=== PATIENT | female | born 1960 | race Two or more races ===

== ENCOUNTER → 2023-11-01 | Outpatient (CLI) | payer BC ==
[~2023-11-01] MED LIST: ALBUTEROL SULF 2.5 MG/0.5ML(0.5%) NEB SOLN ONE
== END | disposition home or self-care (01) ==
LOC: RT 08:40
PROVIDERS: ATTEND Internal Medicine Pulmonary Disease
DX: D86.9 Sarcoidosis, unspecified (principal)
CPT/HCPCS: 94060; 94727; 94729

== ENCOUNTER → 2023-11-29 | Outpatient (CLI) | payer BC | END | disposition home or self-care (01) | LOC: LAB 12:18 | PROVIDERS: ATTEND Internal Medicine Pulmonary Disease | DX: D86.9 Sarcoidosis, unspecified (principal) | CPT/HCPCS: 36415; 82565; 84520 ==

== ENCOUNTER 2024-01-11 09:34 | Inpatient (IN) | payer BC, MEDICARE ==
[~2024-01-11] VITALS: Ht 167.6 cm; Wt 79.0 kg
[2024-01-11] MEDS: HYDROcodone-ACET 5/325MG TAB PO ONE (12:00)
[2024-01-11 12:22] LABS: Basophils # (auto) 0 10 ^3/uL (0-0.2); Basophils % (auto) 0.2 % (0.0-2.0); Eosinophils # (auto) 0 10 ^3/uL (0-0.8); Hematocrit 40.3 % (36.0-46.0); Lymphocytes # (auto) 1.5 10 ^3/uL (0.4-5.4); Lymphocytes % (auto) 7.2 % (10.0-50.0); Mean Corpuscular Hemoglobin 27.1 pg (28.0-32.0); Mean Corpuscular Hgb Conc. 32.2 g/dL (32.0-36.0); Mean Corpuscular Volume 84.1 fL (80.0-100.0); Monocytes # (auto) 2.8 10 ^3/uL (0-1.3); Monocytes % (auto) 13.6 % (0.0-12.0); Neutrophils # (auto) 16.2 10 ^3/uL (1.6-8.6); Nucleated Red Blood Cells % 0.1 %; Platelet Count (auto) 158 10^3/uL (140-450); Red Blood Cells 4.79 10^6/uL (4.0-5.20); Red Cell Distribution Width 14.9 % (11.8-14.3); White Blood Cell 20.5 10^3/uL (4.4-10.8)
[2024-01-11] MEDS: cefTRIAXone 2GM/50ML D5W 50 ML IV ONE (12:22)
[2024-01-11 12:41] LABS: Alanine Aminotransferase 48 U/L (7-40); Alkaline Phosphatase 127 U/L (46-116); Anion Gap 12 (5-15); Aspartate Aminotransferase 53 U/L (13-40); BUN/Creatinine Ratio 13.6 (10.0-20.0); Blood Urea Nitrogen 18 mg/dL (9-23); Calcium 9.1 mg/dL (8.7-10.4); Carbon Dioxide 22 mmol/L (20-30); Chloride 102 mmol/L (98-107); Glucose 114 mg/dL (74-106); Potassium 3.4 mmol/L (3.5-5.1); Sodium 136 mmol/L (136-145)
[2024-01-11 12:42] LABS: Bilirubin, Total 1.4 mg/dL (0.2-1.0); Total Protein 7.2 g/dL (5.7-8.2)
[2024-01-11 12:46] LABS: INR 1.08 (0.9-1.15); Partial Thromboplastin Time 28.2 SEC (24.5-34.5); Prothrombin Time 11.4 sec (9.3-11.8)
[2024-01-11] MEDS: IOHEXOL 350 MG/ML 100ML IJ ONE (15:02)
[2024-01-11 16:15] VITALS: PULSE 79; RESP 16; O2SAT 91
[2024-01-11] MEDS ORDERED: ACETAMINOPHEN 325 MG TAB PO PRN (16:30)
[2024-01-11] MEDS ORDERED: ONDANSETRON HCL 4 MG/2 ML VIAL IV PRN (16:30)
[2024-01-11] MEDS ORDERED: DOCUSATE SOD 100 MG CAP PO PRN (16:30)
[2024-01-11 16:44] LABS: Sodium Urine < 10 mmol/L (40-220)
[2024-01-11 16:45] LABS: Urine Amorphous Crystal FEW /hpf (None Seen); Urine Bacteria FEW /hpf (None Seen); Urine Blood 1+ /uL (Negative); Urine Clarity Turbid (Clear); Urine Color Yellow (Yellow); Urine Mucus FEW (None Seen); Urine Protein, UAD 1+ (Negative); Urine Specific Gravity 1.022 (1.001-1.035); Urine Urobilinogen 6 mg/dL (Negative); Urine WBC 34 /hpf (0 - 5)
[2024-01-11 17:00] LABS: Creatinine, Urine 318.38 mg/dL (30.0-125.0)
[2024-01-11] MEDS: HEPARIN SODIUM (PORCINE) 5000 UNITS/ML 1ML VIAL IV ONE (17:11)
[2024-01-11] MEDS: HEPARIN DRIP/D5W 100UNITS/ML 250 ML IV SCH (17:20)
[2024-01-11 17:33] LABS: Basophils # (auto) 0 10 ^3/uL (0-0.2); Basophils % (auto) 0.1 % (0.0-2.0); Eosinophils # (auto) 0 10 ^3/uL (0-0.8); Hematocrit 39.1 % (36.0-46.0); Hemoglobin 12.6 g/dL (12.2-16.2); Lymphocytes # (auto) 1.6 10 ^3/uL (0.4-5.4); Lymphocytes % (auto) 8.1 % (10.0-50.0); Mean Corpuscular Hemoglobin 26.9 pg (28.0-32.0); Mean Corpuscular Hgb Conc. 32.3 g/dL (32.0-36.0); Mean Corpuscular Volume 83.2 fL (80.0-100.0); Monocytes # (auto) 2.8 10 ^3/uL (0-1.3); Monocytes % (auto) 14.2 % (0.0-12.0); Neutrophils # (auto) 15.2 10 ^3/uL (1.6-8.6); Neutrophils % (auto) 77.6 % (37.0-80.0); Platelet Count (auto) 159 10^3/uL (140-450); Red Cell Distribution Width 14.7 % (11.8-14.3); White Blood Cell 19.6 10^3/uL (4.4-10.8)
[2024-01-11] MEDS: HYDROcodone-ACET 5/325MG TAB PO PRN (17:46)
[2024-01-11] MEDS: AZITHROMYCIN 500MG/ 250ML 250 ML IV ONE (17:47)
[2024-01-11 19:30] VITALS: PULSE 83; RESP 18; O2SAT 91
[2024-01-11] MEDS: SODIUM CHLOR 0.9% PF (SALINE LOCK) 10ML VIAL/SYR IV SCH (22:09)
[2024-01-11] MEDS: HYDROmorphone HCL 2 MG/ML VL/or syr IV PRN (23:47)
[2024-01-12] VITALS (19 sets, daily range): BP systolic 98–128; BP diastolic 52–75; PULSE 65–79; RESP 16–32; TEMP 98.2–98.7; O2SAT 91–100
[2024-01-12 00:06] LABS: INR 1.07 (0.9-1.15); Prothrombin Time 11.3 sec (9.3-11.8)
[2024-01-12 00:09] LABS: Partial Thromboplastin Time 107.9 SEC (24.5-34.5)
[2024-01-12] MEDS ORDERED: LOSA-534 PO (00:51)
[2024-01-12] MEDS ORDERED: CITA20TA9 PO (00:51)
[2024-01-12] MEDS ORDERED: AML5T PO (00:52)
[2024-01-12] MEDS ORDERED: AMLO1TAB23 PO (00:53)
[2024-01-12] MEDS: HEPARIN DRIP/D5W 100UNITS/ML 250 ML IV SCH (01:15)
[2024-01-12 02:44] LABS: Rapid Strep A Screen-Throat Negative
[2024-01-12 03:09] LABS: Rapid Influenza A Negative (Negative); Rapid Influenza B Negative (Negative)
[2024-01-12 03:10] LABS: COVID19 ANTIGEN SOFIA FIA NEGATIVE (NEGATIVE)
[2024-01-12 06:37] LABS: Basophils # (auto) 0 10 ^3/uL (0-0.2); Basophils % (auto) 0.2 % (0.0-2.0); Eosinophils # (auto) 0 10 ^3/uL (0-0.8); Eosinophils % (auto) 0.1 % (0.0-7.0); Hematocrit 34.8 % (36.0-46.0); Hemoglobin 11.5 g/dL (12.2-16.2); Lymphocytes # (auto) 1.8 10 ^3/uL (0.4-5.4); Lymphocytes % (auto) 11.4 % (10.0-50.0); Mean Corpuscular Hemoglobin 27.5 pg (28.0-32.0); Mean Corpuscular Hgb Conc. 33.2 g/dL (32.0-36.0); Mean Corpuscular Volume 82.8 fL (80.0-100.0); Monocytes # (auto) 2.4 10 ^3/uL (0-1.3); Neutrophils # (auto) 11.8 10 ^3/uL (1.6-8.6); Neutrophils % (auto) 73.3 % (37.0-80.0); Platelet Count (auto) 177 10^3/uL (140-450); Red Cell Distribution Width 14.8 % (11.8-14.3)
[2024-01-12 06:40] LABS: INR 1.05 (0.9-1.15); Partial Thromboplastin Time 63.8 SEC (24.5-34.5); Prothrombin Time 11.1 sec (9.3-11.8)
[2024-01-12 06:41] LABS: Alanine Aminotransferase 42 U/L (7-40); Albumin 3.8 g/dL (3.2-4.8); Alkaline Phosphatase 124 U/L (46-116); Anion Gap 8 (5-15); Aspartate Aminotransferase 45 U/L (13-40); Blood Urea Nitrogen 22 mg/dL (9-23); Carbon Dioxide 27 mmol/L (20-30); Chloride 99 mmol/L (98-107); Glucose 102 mg/dL (74-106); Potassium 3.1 mmol/L (3.5-5.1); Sodium 134 mmol/L (136-145)
[2024-01-12 06:42] LABS: Bilirubin, Total 0.9 mg/dL (0.2-1.0)
[2024-01-12] MEDS ORDERED: POTASSIUM CHL 20 Meq TABLET PO STA (07:49)
[2024-01-12] MEDS ORDERED: SODIUM CHLORIDE 0.9% 1,000 ML IV SCH (08:00)
[2024-01-12 12:15] LABS: INR 1.03 (0.9-1.15); Partial Thromboplastin Time 59.1 SEC (24.5-34.5); Prothrombin Time 10.9 sec (9.3-11.8)
[2024-01-12] MEDS: AZITHROMYCIN 500MG/ 250ML 250 ML IV SCH (13:09)
[2024-01-12] MEDS: cefTRIAXone 1GM/50ML D5W 50 ML IV SCH (13:09)
[2024-01-12] MEDS: MORPHINE SULFATE INJ 2 MG/ml SYRG IV PRN ×2 (13:52→17:58)
[2024-01-12] MEDS: HYDROCORTISONE SOD SUCC 100 MG/2ML INJ VIAL IV ONE (15:16)
[2024-01-12] MEDS: POTASSIUM CHLORIDE 60 MEQ, LIDOCAINE 1% (LOCAL ANESTH.) 6 ML in SODIUM CHL 0.9% 500 ML IV ONE (15:16)
[2024-01-12 16:25] LABS: Base Excess 0.6 mmol/L (-2.0-2.0)
[2024-01-12] MEDS: FUROSEMIDE 40 MG/4 ML VIAL IV ONE (17:56)
[2024-01-12] MEDS: CEFEPIME 2GM/50ML NS 50 ML IV ONE (17:58)
[2024-01-12 18:45] LABS: INR 1.04 (0.9-1.15); Partial Thromboplastin Time 62.9 SEC (24.5-34.5)
[2024-01-12] MEDS: IPRATROPIUM BROM 0.5 MG/2.5ML INH SOL NEB PRN (18:55)
[2024-01-12] MEDS: ALBUTEROL SULF 2.5 MG/0.5ML(0.5%) NEB SOLN NEB PRN (18:55)
[2024-01-12] MEDS ORDERED: POTASSIUM CHLORIDE 40 MEQ, LIDOCAINE 1% (LOCAL ANESTH.) 4 ML in SODIUM CHL 0.9% 250 ML IV ONE (19:00)
[2024-01-12] MEDS: HYDROCORTISONE SOD SUCC 100 MG/2ML INJ VIAL IV SCH (21:49)
[2024-01-12] MEDS ORDERED: HYDROCORTISONE SOD SUCC 100 MG/2ML INJ VIAL IV SCH (22:00)
[2024-01-12 22:45] LABS: Alanine Aminotransferase 53 U/L (7-40); Albumin 3.8 g/dL (3.2-4.8); Alkaline Phosphatase 158 U/L (46-116); Anion Gap 11 (5-15); Aspartate Aminotransferase 61 U/L (13-40); BUN/Creatinine Ratio 11.3 (10.0-20.0); Blood Urea Nitrogen 15 mg/dL (9-23); Calcium 9.2 mg/dL (8.7-10.4); Carbon Dioxide 22 mmol/L (20-30); Chloride 102 mmol/L (98-107); Glucose 147 mg/dL (74-106); Potassium 3.4 mmol/L (3.5-5.1); Sodium 135 mmol/L (136-145)
[2024-01-13] VITALS (30 sets, daily range): BP systolic 102–139; BP diastolic 52–86; PULSE 60–77; RESP 10–28; TEMP 97.5–98.6; O2SAT 93–99
[2024-01-13 05:26] LABS: Basophils # (auto) 0 10 ^3/uL (0-0.2); Basophils % (auto) 0.1 % (0.0-2.0); Eosinophils # (auto) 0 10 ^3/uL (0-0.8); Hematocrit 35.9 % (36.0-46.0); Hemoglobin 11.8 g/dL (12.2-16.2); Lymphocytes # (auto) 0.8 10 ^3/uL (0.4-5.4); Lymphocytes % (auto) 4.9 % (10.0-50.0); Mean Corpuscular Hemoglobin 27.4 pg (28.0-32.0); Mean Corpuscular Hgb Conc. 32.9 g/dL (32.0-36.0); Mean Corpuscular Volume 83.1 fL (80.0-100.0); Monocytes % (auto) 6.4 % (0.0-12.0); Neutrophils # (auto) 13.8 10 ^3/uL (1.6-8.6); Neutrophils % (auto) 88.6 % (37.0-80.0); Platelet Count (auto) 216 10^3/uL (140-450); Red Blood Cells 4.32 10^6/uL (4.0-5.20); Red Cell Distribution Width 14.8 % (11.8-14.3); White Blood Cell 15.6 10^3/uL (4.4-10.8)
[2024-01-13 05:39] LABS: INR 1.08 (0.9-1.15); Partial Thromboplastin Time 60.1 SEC (24.5-34.5); Prothrombin Time 11.4 sec (9.3-11.8)
[2024-01-13] MEDS: CEFEPIME 2GM/50ML NS 50 ML IV SCH (05:39)
[2024-01-13 05:42] LABS: Alanine Aminotransferase 53 U/L (7-40); Albumin 3.8 g/dL (3.2-4.8); Alkaline Phosphatase 162 U/L (46-116); Anion Gap 8 (5-15); Aspartate Aminotransferase 54 U/L (13-40); BUN/Creatinine Ratio 14.8 (10.0-20.0); Blood Urea Nitrogen 17 mg/dL (9-23); Calcium 9.1 mg/dL (8.7-10.4); Carbon Dioxide 26 mmol/L (20-30); Chloride 104 mmol/L (98-107); Glucose 145 mg/dL (74-106); Magnesium 1.9 mg/dL (1.6-2.6); Potassium 3.3 mmol/L (3.5-5.1); Sodium 138 mmol/L (136-145)
[2024-01-13 05:43] LABS: Bilirubin, Total 0.8 mg/dL (0.2-1.0); Total Protein 7.2 g/dL (5.7-8.2)
[2024-01-13] MEDS: POTASSIUM CHL 20MEQ/100ML 100 ML IV SCH (06:45)
[2024-01-13] MEDS: POTASSIUM CHLORIDE 40 MEQ, LIDOCAINE 1% (LOCAL ANESTH.) 4 ML in SODIUM CHL 0.9% 250 ML IV ONE (08:07)
[2024-01-13] MEDS ORDERED: CEFEPIME 1GM/ 50ML 50 ML IV SCH (10:00)
[2024-01-13] MEDS: POTASSIUM CHLORIDE 20 MEQ, LIDOCAINE 1% (LOCAL ANESTH.) 2 ML in SODIUM CHL 0.9% 100 ML IV ONE (12:16)
[2024-01-14] VITALS (27 sets, daily range): BP systolic 120–153; BP diastolic 49–74; PULSE 51–78; RESP 16–29; TEMP 97.6–98.1; O2SAT 92–98
[2024-01-14 05:06] LABS: Basophils # (auto) 0.1 10 ^3/uL (0-0.2); Basophils % (auto) 0.3 % (0.0-2.0); Eosinophils # (auto) 0 10 ^3/uL (0-0.8); Hematocrit 34.7 % (36.0-46.0); Hemoglobin 11.5 g/dL (12.2-16.2); Lymphocytes # (auto) 0.7 10 ^3/uL (0.4-5.4); Lymphocytes % (auto) 3.7 % (10.0-50.0); Mean Corpuscular Hemoglobin 27.3 pg (28.0-32.0); Mean Corpuscular Hgb Conc. 33.1 g/dL (32.0-36.0); Mean Corpuscular Volume 82.5 fL (80.0-100.0); Monocytes # (auto) 1.1 10 ^3/uL (0-1.3); Monocytes % (auto) 6.2 % (0.0-12.0); Neutrophils # (auto) 15.9 10 ^3/uL (1.6-8.6); Neutrophils % (auto) 89.8 % (37.0-80.0); Platelet Count (auto) 261 10^3/uL (140-450); Red Blood Cells 4.21 10^6/uL (4.0-5.20); Red Cell Distribution Width 14.9 % (11.8-14.3); White Blood Cell 17.7 10^3/uL (4.4-10.8)
[2024-01-14 05:20] LABS: INR 1.08 (0.9-1.15); Partial Thromboplastin Time 69.6 SEC (24.5-34.5); Prothrombin Time 11.4 sec (9.3-11.8)
[2024-01-14 05:34] LABS: Alanine Aminotransferase 85 U/L (7-40); Albumin 3.3 g/dL (3.2-4.8); Alkaline Phosphatase 161 U/L (46-116); Anion Gap 5 (5-15); Aspartate Aminotransferase 84 U/L (13-40); BUN/Creatinine Ratio 17.7 (10.0-20.0); Blood Urea Nitrogen 14 mg/dL (9-23); Calcium 8.7 mg/dL (8.7-10.4); Carbon Dioxide 27 mmol/L (20-30); Chloride 107 mmol/L (98-107); Glucose 140 mg/dL (74-106); Magnesium 1.9 mg/dL (1.6-2.6); Potassium 4.1 mmol/L (3.5-5.1); Sodium 139 mmol/L (136-145)
[2024-01-14 05:35] LABS: Bilirubin, Total 0.6 mg/dL (0.2-1.0); Total Protein 5.8 g/dL (5.7-8.2)
[2024-01-14] MEDS: HYDROCORTISONE SOD SUCC 100 MG/2ML INJ VIAL IV SCH (09:33)
[2024-01-14] MEDS: ENOXAPARIN SOD 80 MG/0.8ML SYRINGE SC SCH (09:33)
[2024-01-14 14:26] LABS: Urine Bacteria FEW /hpf (None Seen); Urine Blood 3+ /uL (Negative); Urine Protein, UAD 1+ (Negative); Urine Specific Gravity 1.022 (1.001-1.035); Urine Urobilinogen Normal (Negative); Urine WBC 14 /hpf (0 - 5)
[2024-01-14 14:27] LABS: Urine Clarity Cloudy (Clear); Urine Color Red (Yellow)
[2024-01-14] MEDS ORDERED: hydrALAZINE HCL 20 MG/ML VL IV PRN (14:45)
[2024-01-15] VITALS (23 sets, daily range): BP systolic 104–154; BP diastolic 67–79; PULSE 51–72; RESP 16–18; TEMP 97.6–98.4; O2SAT 91–96
[2024-01-15 06:38] LABS: Basophils # (auto) 0 10 ^3/uL (0-0.2); Basophils % (auto) 0.1 % (0.0-2.0); Eosinophils # (auto) 0 10 ^3/uL (0-0.8); Eosinophils % (auto) 0.1 % (0.0-7.0); Hematocrit 35.7 % (36.0-46.0); Hemoglobin 11.8 g/dL (12.2-16.2); Lymphocytes # (auto) 1.8 10 ^3/uL (0.4-5.4); Lymphocytes % (auto) 13.2 % (10.0-50.0); Mean Corpuscular Hemoglobin 27.5 pg (28.0-32.0); Mean Corpuscular Hgb Conc. 33.1 g/dL (32.0-36.0); Mean Corpuscular Volume 82.9 fL (80.0-100.0); Monocytes # (auto) 1.8 10 ^3/uL (0-1.3); Neutrophils # (auto) 10.1 10 ^3/uL (1.6-8.6); Neutrophils % (auto) 73.6 % (37.0-80.0); Platelet Count (auto) 284 10^3/uL (140-450); Red Cell Distribution Width 14.9 % (11.8-14.3); White Blood Cell 13.8 10^3/uL (4.4-10.8)
[2024-01-15 06:43] LABS: Alanine Aminotransferase 89 U/L (7-40); Albumin 3.4 g/dL (3.2-4.8); Alkaline Phosphatase 147 U/L (46-116); Anion Gap 5 (5-15); Aspartate Aminotransferase 71 U/L (13-40); BUN/Creatinine Ratio 17.1 (10.0-20.0); Blood Urea Nitrogen 14 mg/dL (9-23); Calcium 9.6 mg/dL (8.7-10.4); Carbon Dioxide 28 mmol/L (20-30); Chloride 106 mmol/L (98-107); Glucose 90 mg/dL (74-106); Magnesium 1.9 mg/dL (1.6-2.6); Potassium 3.2 mmol/L (3.5-5.1); Sodium 139 mmol/L (136-145)
[2024-01-15 06:44] LABS: Bilirubin, Total 0.6 mg/dL (0.2-1.0); Total Protein 6.4 g/dL (5.7-8.2)
[2024-01-15] MEDS: CITALOPRAM HYDROBR 20 MG TAB PO SCH (10:02)
[2024-01-15] MEDS: POTASSIUM EFFERVESENT TAB 25 MEQ PO STA (10:02)
[2024-01-15] MEDS: amLODIPine BESYLATE 5 MG TAB PO SCH (10:03)
[2024-01-15 16:37] LABS: Chloride 104 mmol/L (98-107); Potassium 3.8 mmol/L (3.5-5.1); Sodium 137 mmol/L (136-145)
[2024-01-15 16:38] LABS: Anion Gap 6 (5-15); Calcium 9.5 mg/dL (8.7-10.4); Carbon Dioxide 27 mmol/L (20-30)
[2024-01-15 16:43] LABS: BUN/Creatinine Ratio 14.6 (10.0-20.0); Blood Urea Nitrogen 13 mg/dL (9-23); Glucose 166 mg/dL (74-106)
[2024-01-15] MEDS: LOSARTAN POTASSIUM 50 MG TAB PO STA (17:35)
[2024-01-15] MEDS: PANTOPRAZOLE 40 MG TAB PO STA (17:35)
[2024-01-16] VITALS (12 sets, daily range): BP systolic 111–152; BP diastolic 60–87; PULSE 51–74; RESP 6–20; TEMP 97.8–99.1; O2SAT 91–97
[2024-01-16] MEDS: PANTOPRAZOLE 40 MG TAB PO SCH (05:34)
[2024-01-16 07:01] LABS: Basophils # (auto) 0 10 ^3/uL (0-0.2); Basophils % (auto) 0.3 % (0.0-2.0); Eosinophils # (auto) 0 10 ^3/uL (0-0.8); Eosinophils % (auto) 0.3 % (0.0-7.0); Hemoglobin 12.3 g/dL (12.2-16.2); Lymphocytes # (auto) 2.6 10 ^3/uL (0.4-5.4); Lymphocytes % (auto) 17.5 % (10.0-50.0); Mean Corpuscular Hemoglobin 27.5 pg (28.0-32.0); Mean Corpuscular Hgb Conc. 33.3 g/dL (32.0-36.0); Mean Corpuscular Volume 82.5 fL (80.0-100.0); Monocytes # (auto) 1.8 10 ^3/uL (0-1.3); Monocytes % (auto) 11.9 % (0.0-12.0); Neutrophils # (auto) 10.3 10 ^3/uL (1.6-8.6); Nucleated Red Blood Cells % 0.1 %; Platelet Count (auto) 329 10^3/uL (140-450); Red Blood Cells 4.49 10^6/uL (4.0-5.20); White Blood Cell 14.7 10^3/uL (4.4-10.8)
[2024-01-16 07:37] LABS: Alanine Aminotransferase 95 U/L (7-40); Albumin 3.7 g/dL (3.2-4.8); Alkaline Phosphatase 144 U/L (46-116); Anion Gap 6 (5-15); Aspartate Aminotransferase 60 U/L (13-40); BUN/Creatinine Ratio 15.7 (10.0-20.0); Bilirubin, Total 0.6 mg/dL (0.2-1.0); Blood Urea Nitrogen 13 mg/dL (9-23); Calcium 9.7 mg/dL (8.7-10.4); Carbon Dioxide 30 mmol/L (20-30); Chloride 104 mmol/L (98-107); Glucose 78 mg/dL (74-106); Potassium 3.8 mmol/L (3.5-5.1); Sodium 140 mmol/L (136-145); Total Protein 6.6 g/dL (5.7-8.2)
[2024-01-16] MEDS ORDERED: FUROSEMIDE 40 MG/4 ML VIAL ONE (10:21)
[2024-01-16] MEDS: LOSARTAN POTASSIUM 50 MG TAB PO SCH (11:48)
[2024-01-16 19:41] LABS: Base Excess 4.4 mmol/L (-2.0-3.0)
[2024-01-17] VITALS (10 sets, daily range): BP systolic 98–125; BP diastolic 52–75; PULSE 62–80; RESP 17–18; TEMP 97.4–98.8; O2SAT 90–93
[2024-01-17 08:11] LABS: Hematocrit 34.8 % (36.0-46.0); Hemoglobin 11.8 g/dL (12.2-16.2); Mean Corpuscular Hemoglobin 27.7 pg (28.0-32.0); Mean Corpuscular Hgb Conc. 33.8 g/dL (32.0-36.0); Mean Corpuscular Volume 82.1 fL (80.0-100.0); Platelet Count (auto) 330 10^3/uL (140-450); Red Blood Cells 4.24 10^6/uL (4.0-5.20); Red Cell Distribution Width 14.6 % (11.8-14.3); White Blood Cell 11.8 10^3/uL (4.4-10.8)
[2024-01-17 08:36] LABS: Alanine Aminotransferase 90 U/L (7-40); Albumin 3.3 g/dL (3.2-4.8); Alkaline Phosphatase 125 U/L (46-116); Anion Gap 5 (5-15); Aspartate Aminotransferase 60 U/L (13-40); BUN/Creatinine Ratio 15.7 (10.0-20.0); Blood Urea Nitrogen 13 mg/dL (9-23); Calcium 9.6 mg/dL (8.7-10.4); Carbon Dioxide 30 mmol/L (20-30); Chloride 103 mmol/L (98-107); Glucose 94 mg/dL (74-106); Potassium 3.4 mmol/L (3.5-5.1); Sodium 138 mmol/L (136-145)
[2024-01-17 08:37] LABS: Bilirubin, Total 0.6 mg/dL (0.2-1.0); Total Protein 6.2 g/dL (5.7-8.2)
[2024-01-17 08:40] LABS: Basophils % (manual) 0 (0.0-2.0); Blast Cells 0; Myelocytes % 0; Promyelocytes % 0; Reactive Lymphocytes 0
[2024-01-17 10:47] LABS: Band Neutrophils % (manual) 7; Eosinophils % (manual) 2 (0-7); Lymphocytes % (manual) 24 (10.0-50.0); Metamyelocytes % 4; Monocytes % (manual) 12 (0-12); Platelet Estimate Adequate
[2024-01-17] MEDS: POTASSIUM CHLORIDE 40 MEQ, LIDOCAINE 1% (LOCAL ANESTH.) 4 ML in SODIUM CHL 0.9% 250 ML IV ONE (21:22)
[2024-01-18] VITALS (15 sets, daily range): BP systolic 109–134; BP diastolic 56–69; PULSE 68–86; RESP 16–24; TEMP 97.6–98.6; O2SAT 92–99
[2024-01-18 06:20] LABS: Hematocrit 33.8 % (36.0-46.0); Hemoglobin 11.4 g/dL (12.2-16.2); Mean Corpuscular Hemoglobin 27.9 pg (28.0-32.0); Mean Corpuscular Hgb Conc. 33.8 g/dL (32.0-36.0); Mean Corpuscular Volume 82.7 fL (80.0-100.0); Platelet Count (auto) 328 10^3/uL (140-450); Red Blood Cells 4.09 10^6/uL (4.0-5.20); White Blood Cell 10.5 10^3/uL (4.4-10.8)
[2024-01-18 06:24] LABS: Basophils % (manual) 0 (0.0-2.0); Blast Cells 0; Promyelocytes % 0; Reactive Lymphocytes 0
[2024-01-18 06:29] LABS: Alanine Aminotransferase 79 U/L (7-40); Albumin 3.2 g/dL (3.2-4.8); Alkaline Phosphatase 114 U/L (46-116); Anion Gap 5 (5-15); Aspartate Aminotransferase 50 U/L (13-40); BUN/Creatinine Ratio 15.1 (10.0-20.0); Bilirubin, Total 0.6 mg/dL (0.2-1.0); Blood Urea Nitrogen 11 mg/dL (9-23); Calcium 9.2 mg/dL (8.7-10.4); Carbon Dioxide 28 mmol/L (20-30); Chloride 104 mmol/L (98-107); Glucose 96 mg/dL (74-106); Magnesium 1.6 mg/dL (1.6-2.6); Potassium 4.1 mmol/L (3.5-5.1); Sodium 137 mmol/L (136-145); Total Protein 5.9 g/dL (5.7-8.2)
[2024-01-18 08:16] LABS: Band Neutrophils % (manual) 6; Eosinophils % (manual) 1 (0-7); Lymphocytes % (manual) 22 (10.0-50.0); Metamyelocytes % 1; Monocytes % (manual) 13 (0-12); Myelocytes % 1; Platelet Estimate Adequate
[2024-01-18] MEDS ORDERED: fentaNYL CITRATE 100 MCG/2 ML VL ONE (13:05)
[2024-01-18] MEDS ORDERED: MIDAZOLAM HCL 2MG/2ML 2ml VIAL (1mg/ml) ONE (13:05)
[2024-01-18] MEDS ORDERED: LIDOCAINE 2%HCL (LOCAL ANESTH.) INJ 20ML MDV ONE (13:06)
[2024-01-18] MEDS ORDERED: IODIXANOL 320MG/ML 100ML BTL IV ONE (13:06)
[2024-01-18] MEDS ORDERED: PRED1SUS4 OP (17:34)
[2024-01-19 05:10] VITALS: BP 115/65; PULSE 53; RESP 18; TEMP 97.9; O2SAT 96
[2024-01-19 08:00] VITALS: O2SAT 96
[2024-01-19 09:00] VITALS: BP 118/60; PULSE 59; RESP 16; TEMP 98.4; O2SAT 96
[2024-01-19 10:16] VITALS: O2SAT 95
[2024-01-19] MEDS ORDERED: PANT40T PO (12:51)
[2024-01-19] MEDS ORDERED: APIX5TAB PO (12:51)
[2024-01-19] MEDS ORDERED: ACET-1882 PO (12:51)
[2024-01-19 13:00] VITALS: BP 114/58; PULSE 66; RESP 16; TEMP 98.8; O2SAT 95
[2024-01-19] MEDS ORDERED: APIXABAN 5 MG TAB PO SCH (22:00)
[2024-01-26] MEDS ORDERED: APIXABAN 5 MG TAB PO SCH (22:00)
[2024-01-27] MEDS ORDERED: APIXABAN 5 MG TAB PO SCH (10:00)
== END 2024-01-19 16:30 | disposition home or self-care (01) | DRG 871 ==
LOC: ER 09:34 → TELE 16:24 → TELE-EAST 23:51 → ICU WEST 01-12 14:55 → ICU CENTRL 01-12 15:30 → DOU IN ICU 01-12 15:34 → TELE-CENTR 01-14 13:03
PROVIDERS: ADMIT Internal Medicine Pulmonary Disease; ATTEND Student in an Organized Health Care Education/Training Program
PROC: 0T903ZZ Drainage of Right Kidney, Percutaneous Approach (ICD-10-PCS; principal; 2024-01-18)
DX: A41.9 Sepsis, unspecified organism (principal); I26.99 Other pulmonary embolism without acute cor pulmonale; J96.01 Acute respiratory failure with hypoxia; J18.9 Pneumonia, unspecified organism; N17.9 Acute kidney failure, unspecified; K80.00 Calculus of gallbladder with acute cholecystitis without obstruction; N13.6 Pyonephrosis; E87.1 Hypo-osmolality and hyponatremia; I10 Essential (primary) hypertension; Z20.822 Contact with and (suspected) exposure to COVID-19; E87.6 Hypokalemia; F41.9 Anxiety disorder, unspecified; E66.9 Obesity, unspecified; D86.9 Sarcoidosis, unspecified; Z79.899 Other long term (current) drug therapy; Z68.28 Body mass index [BMI] 28.0-28.9, adult
CPT/HCPCS: 36415; 36600; 50432; 71045; 71046; 71275; 75984; 76700; 76775; 76942; 78226; 78707; 80048; 80053; 81001; 82570; 82805; 83690; 83735; 83880; 84300; 84484; 85007; 85025; 85027; 85379; 85610; 85730; 87040; 87070; 87081; 87086; 87426; 87804; 87880; 93005; 93306; 93970; 94640; 96365; 97110; 97116; 97163; 97530; 99152; G0378; J0692; J2001; J2250; Q9967

== ENCOUNTER 2024-03-07 09:10 | Emergency (ER) | payer BC, MEDICARE ==
[~2024-03-07] VITALS: Ht 165.1 cm; Wt 77.3 kg
[~2024-03-07 09:10] MED LIST changes: +ACET-1882 PO; -ALBUTEROL SULF 2.5 MG/0.5ML(0.5%) NEB SOLN ONE; +AMLO1TAB23 PO; +APIX5TAB PO; +CITA20TA9 PO; +LOSA-534 PO; +PANT40T PO
[2024-03-07 10:05] LABS: Chloride 107 mmol/L (98-107); Potassium 3.9 mmol/L (3.5-5.1); Sodium 142 mmol/L (136-145)
[2024-03-07 10:06] LABS: Anion Gap 4 (5-15); Calcium 10.2 mg/dL (8.7-10.4); Carbon Dioxide 31 mmol/L (20-31)
[2024-03-07 10:11] LABS: BUN/Creatinine Ratio 15.5 (10.0-20.0); Blood Urea Nitrogen 15 mg/dL (9-23); Glucose 94 mg/dL (74-106)
[2024-03-07 10:12] LABS: Magnesium 1.9 mg/dL (1.6-2.6)
[2024-03-07 10:13] LABS: Basophils # (auto) 0.1 10 ^3/uL (0-0.2); Eosinophils # (auto) 0.2 10 ^3/uL (0-0.8); Eosinophils % (auto) 2.8 % (0.0-7.0); Hematocrit 41.7 % (36.0-46.0); Hemoglobin 13.7 g/dL (12.2-16.2); Lymphocytes # (auto) 1.6 10 ^3/uL (0.4-5.4); Lymphocytes % (auto) 28.7 % (10.0-50.0); Mean Corpuscular Hemoglobin 27.3 pg (28.0-32.0); Mean Corpuscular Hgb Conc. 32.9 g/dL (32.0-36.0); Mean Corpuscular Volume 83.1 fL (80.0-100.0); Monocytes # (auto) 0.6 10 ^3/uL (0-1.3); Monocytes % (auto) 11.2 % (0.0-12.0); Neutrophils # (auto) 3.2 10 ^3/uL (1.6-8.6); Neutrophils % (auto) 56.3 % (37.0-80.0); Nucleated Red Blood Cells % 0.1 %; Platelet Count (auto) 217 10^3/uL (140-450); Red Blood Cells 5.01 10^6/uL (4.0-5.20); Red Cell Distribution Width 15.8 % (11.8-14.3); White Blood Cell 5.7 10^3/uL (4.4-10.8)
[2024-03-07 10:30] VITALS: PULSE 74; RESP 19; O2SAT 95
[2024-03-07 10:40] LABS: Urine Bacteria None Seen /hpf (None Seen)
[2024-03-07 11:13] VITALS: BP 135/58; PULSE 57; RESP 19; TEMP 98.2; O2SAT 97
[2024-03-07 11:19] LABS: Urine Blood TRACE /uL (Negative); Urine Clarity Clear (Clear); Urine Color Yellow (Yellow); Urine Mucus FEW (None Seen); Urine Protein, UAD 1+ (Negative); Urine Specific Gravity 1.023 (1.001-1.035); Urine Urobilinogen Normal (Negative); Urine WBC 39 /hpf (0 - 5)
[2024-03-07] MEDS ORDERED: CIPR-173 PO (11:33)
== END 2024-03-07 12:09 | disposition home or self-care (01) ==
LOC: ER 09:10
DX: T83.092A Other mechanical complication of nephrostomy catheter, initial encounter (principal); N39.0 Urinary tract infection, site not specified; I10 Essential (primary) hypertension; Z79.01 Long term (current) use of anticoagulants; Z79.899 Other long term (current) drug therapy; Z88.8 Allergy status to other drugs, medicaments and biological substances
CPT/HCPCS: 36415; 80048; 81001; 83735; 85025

== ENCOUNTER 2024-03-20 07:25 | Day surgery (SDC) | payer BC, MEDICARE ==
[~2024-03-20] VITALS: Ht 167.6 cm; Wt 76.7 kg
[2024-03-20] VITALS (7 sets, daily range): BP systolic 117–132; BP diastolic 63–71; PULSE 56–61; RESP 14–20; TEMP 97.7; O2SAT 94–97
[~2024-03-20 07:25] MED LIST changes: -ACET-1882 PO; +CHOL100079 OR; +IBUP200T76 PO
[2024-03-20] MEDS ORDERED: fentaNYL CITRATE 100 MCG/2 ML VL ONE (10:38)
[2024-03-20] MEDS ORDERED: LIDOCAINE 2%HCL (LOCAL ANESTH.) INJ 20ML MDV ONE (10:39)
[2024-03-20] MEDS ORDERED: MIDAZOLAM HCL 2MG/2ML 2ml VIAL (1mg/ml) ONE (10:39)
[2024-03-20] MEDS ORDERED: IODIXANOL 320MG/ML 100ML BTL IV ONE (10:46)
[2024-03-20] MEDS ORDERED: cefTRIAXone 1GM/50ML D5W 50 ML IV ONE (10:53)
== END 2024-03-20 13:19 | disposition home or self-care (01) ==
LOC: CATH 07:25
PROVIDERS: ATTEND Radiology Diagnostic Radiology
DX: Z46.6 Encounter for fitting and adjustment of urinary device (principal); N13.2 Hydronephrosis with renal and ureteral calculous obstruction; Z98.890 Other specified postprocedural states
CPT/HCPCS: 50435; C1729; J0696; J1644; J2250; J3010; Q9967; 74425; 99152; 99157

== ENCOUNTER → 2024-07-02 | Outpatient (CLI) | payer OTHER ==
[~2024-07-02] MED LIST changes: +CEPH500T PO; +DOCU-94 PO; +HYDR1TAB97 PO
[2024-07-02 11:23] LABS: Basophils # (auto) 0 10 ^3/uL (0-0.2); Basophils % (auto) 0.8 % (0.0-2.0); Eosinophils # (auto) 0.1 10 ^3/uL (0-0.8); Lymphocytes # (auto) 1.8 10 ^3/uL (0.4-5.4); Monocytes # (auto) 0.6 10 ^3/uL (0-1.3); Monocytes % (auto) 12.1 % (0.0-12.0); Red Blood Cells 5.14 10^6/uL (4.0-5.20)
[2024-07-02 11:25] LABS: Eosinophils % (auto) 1.9 % (0.0-7.0); Hematocrit 41.8 % (36.0-46.0); Hemoglobin 13.7 g/dL (12.2-16.2); Lymphocytes % (auto) 35.6 % (10.0-50.0); Mean Corpuscular Hemoglobin 26.7 pg (28.0-32.0); Mean Corpuscular Hgb Conc. 32.8 g/dL (32.0-36.0); Mean Corpuscular Volume 81.5 fL (80.0-100.0); Neutrophils # (auto) 2.5 10 ^3/uL (1.6-8.6); Neutrophils % (auto) 49.6 % (37.0-80.0); Platelet Count (auto) 195 10^3/uL (140-450); White Blood Cell 5.1 10^3/uL (4.4-10.8)
[2024-07-02 12:04] LABS: Albumin 4.5 g/dL (3.2-4.8); Alkaline Phosphatase 60 U/L (46-116); Anion Gap 8 (5-15); BUN/Creatinine Ratio 11.4 (10.0-20.0); Blood Urea Nitrogen 12 mg/dL (9-23); Calcium 10.1 mg/dL (8.7-10.4); Carbon Dioxide 30 mmol/L (20-31); Chloride 104 mmol/L (98-107); Glucose 91 mg/dL (74-106); HDL Cholesterol 50 mg/dL (40-59); Sodium 142 mmol/L (136-145); Triglycerides 117 mg/dL (< 150)
[2024-07-02 12:08] LABS: Alanine Aminotransferase < 9 U/L (7-40); Aspartate Aminotransferase 9 U/L (13-40); Bilirubin, Total 0.4 mg/dL (0.2-1.0); Cholesterol 283 mg/dL (< 200); LDL Cholesterol 218 mg/dL (< 100); Potassium 3.4 mmol/L (3.5-5.1); Total Protein 7.3 g/dL (5.7-8.2)
[2024-07-02 12:20] LABS: Urine Bacteria FEW /hpf (None Seen); Urine Blood Negative /uL (Negative); Urine Color Light-Yellow (Yellow); Urine Mucus FEW (None Seen); Urine Protein, UAD TRACE (Negative); Urine Specific Gravity 1.018 (1.001-1.035); Urine Squamous Epithelial Cell MOD /hpf (<5); Urine Urobilinogen Normal (Negative); Urine WBC 35 /HPF (0-5)
[2024-07-02 12:21] LABS: Urine Clarity Cloudy (Clear)
[2024-07-02 12:45] LABS: Creatinine, Urine 219.27 mg/dL (30.0-125.0)
[2024-07-02 13:00] LABS: Hepatitis B Surface Antibody Negative (Negative)
[2024-07-02 13:23] LABS: Hepatitis C Antibody Negative (Negative)
== END | disposition home or self-care (01) ==
LOC: LAB 10:04
PROVIDERS: ATTEND Physician Assistant
DX: Z11.59 Encounter for screening for other viral diseases (principal); I10 Essential (primary) hypertension; Z79.899 Other long term (current) drug therapy
CPT/HCPCS: 36415; 80053; 80061; 81001; 82043; 82306; 82570; 83036; 84443; 85025; 86706; 86803

== ENCOUNTER 2024-07-04 08:06 | Inpatient (IN) | payer MEDICARE, OTHER ==
[2024-07-02 11:31] LABS: Basophils # (auto) 0 10 ^3/uL (0-0.2); Basophils % (auto) 0.8 % (0.0-2.0); Eosinophils # (auto) 0.1 10 ^3/uL (0-0.8); Eosinophils % (auto) 1.9 % (0.0-7.0); Hematocrit 41.8 % (36.0-46.0); Hemoglobin 13.7 g/dL (12.2-16.2); Lymphocytes # (auto) 1.8 10 ^3/uL (0.4-5.4); Lymphocytes % (auto) 35.6 % (10.0-50.0); Mean Corpuscular Hemoglobin 26.7 pg (28.0-32.0); Mean Corpuscular Hgb Conc. 32.8 g/dL (32.0-36.0); Mean Corpuscular Volume 81.5 fL (80.0-100.0); Monocytes # (auto) 0.6 10 ^3/uL (0-1.3); Monocytes % (auto) 12.1 % (0.0-12.0); Neutrophils # (auto) 2.5 10 ^3/uL (1.6-8.6); Neutrophils % (auto) 49.6 % (37.0-80.0); Platelet Count (auto) 195 10^3/uL (140-450); Red Blood Cells 5.14 10^6/uL (4.0-5.20); White Blood Cell 5.1 10^3/uL (4.4-10.8)
[2024-07-02 11:37] LABS: INR 0.99 (0.9-1.15); Partial Thromboplastin Time 27.3 SEC (24.5-34.5); Prothrombin Time 10.5 sec (9.3-11.8)
[2024-07-02 12:02] LABS: Albumin 4.5 g/dL (3.2-4.8); Alkaline Phosphatase 62 U/L (46-116); Anion Gap 8 (5-15); BUN/Creatinine Ratio 14.3 (10.0-20.0); Blood Urea Nitrogen 14 mg/dL (9-23); Calcium 10.1 mg/dL (8.7-10.4); Carbon Dioxide 30 mmol/L (20-31); Chloride 104 mmol/L (98-107); Glucose 90 mg/dL (74-106); Sodium 142 mmol/L (136-145)
[2024-07-02 12:03] LABS: Bilirubin, Total 0.4 mg/dL (0.2-1.0); Total Protein 7.4 g/dL (5.7-8.2)
[2024-07-02 12:08] LABS: Alanine Aminotransferase < 9 U/L (7-40); Aspartate Aminotransferase 11 U/L (13-40); Potassium 3.3 mmol/L (3.5-5.1)
[2024-07-02 12:19] LABS: Urine Bacteria FEW /hpf (None Seen); Urine Blood Negative /uL (Negative); Urine Color Yellow (Yellow); Urine Protein, UAD TRACE (Negative); Urine Specific Gravity 1.018 (1.001-1.035); Urine Squamous Epithelial Cell MOD /hpf (<5); Urine Urobilinogen Normal (Negative); Urine WBC 34 /HPF (0-5)
[2024-07-02 12:21] LABS: Urine Clarity Cloudy (Clear)
[~2024-07-04] VITALS: Ht 165.1 cm; Wt 85.3 kg
[~2024-07-04 08:06] MED LIST changes: -APIX5TAB PO; -CEPH500T PO; -DOCU-94 PO; -HYDR1TAB97 PO; -IBUP200T76 PO
[2024-07-04] MEDS ORDERED: KETOROLAC TROMETH 30 MG/ML 1ML VIAL IV ONE (09:00)
[2024-07-04] MEDS ORDERED: METOCLOPRAMIDE HCL 5MG/ml INJ 2ml VIAL IV ONE (09:00)
[2024-07-04] MEDS ORDERED: MORPHINE SULFATE 4 MG/ML SYR/VIAL IV PRN (09:00)
[2024-07-04] MEDS ORDERED: MORPHINE SULFATE INJ 2 MG/ml SYRG IV PRN ×2 (09:00→14:15)
[2024-07-04] MEDS ORDERED: HYDROmorphone HCL 2 MG/ML VL/or syr IV PRN ×2 (09:00)
[2024-07-04] MEDS ORDERED: KETAMINE 50mg/ML 1ml syringe ONE (09:01)
[2024-07-04] MEDS ORDERED: MEPERIDINE HCL (25 MG/ML) 1ML VIAL ONE (09:01)
[2024-07-04] MEDS ORDERED: fentaNYL CITRATE 100 MCG/2 ML VL ONE (09:02)
[2024-07-04] MEDS ORDERED: MIDAZOLAM HCL 2MG/2ML 2ml VIAL (1mg/ml) ONE (09:02)
[2024-07-04] MEDS ORDERED: SODIUM CHLORIDE LOCK 10 ML ONE (09:02)
[2024-07-04] MEDS ORDERED: LIDOCAINE 1% INJ PF 5ML AMP ONE (09:02)
[2024-07-04] MEDS ORDERED: NEOSTIGMINE 1 MG/ML INJ (10mg/10ML VIAL) ONE (09:02)
[2024-07-04] MEDS ORDERED: ONDANSETRON HCL 4 MG/2 ML VIAL ONE (09:02)
[2024-07-04] MEDS ORDERED: GLYCOPYRROLATE 0.2 MG/ML 1ML VIAL ONE (09:02)
[2024-07-04] MEDS ORDERED: ROCURONIUM 10MG/ML 10ML VIAL IV ONE (09:02)
[2024-07-04] MEDS ORDERED: PROPOFOL 10 MG/ML 20 ML IV ONE (09:02)
[2024-07-04] MEDS ORDERED: LIDOCAINE HCL 2% TOP JELLY 5ML TOP ONE (09:02)
[2024-07-04] MEDS: BUPIVACAINE 0.5% P/F INJ 10 ML VIAL ONE (09:35)
[2024-07-04] MEDS: LIDOCAINE W/ EPINEPHRINE 1% 20ML VIAL ONE (09:35)
[2024-07-04 10:17] VITALS: O2SAT 99
[2024-07-04] MEDS ORDERED: SUCCINYLCHOLINE CHLORIDE 20 MG/ML 10ML VIAL IV ONE (11:13)
--- NOTE | 2024-07-04 11:57 | DVHOP ---
DATE OF SURGERY: 07/04/2024 PREOPERATIVE DIAGNOSES: Cholelithiasis, cholecystitis. POSTOPERATIVE DIAGNOSES: Chronic and acute cholecystitis, cholelithiasis. SURGEON: Terrance Herrera MD CRATE BUILDER: Nitin Navas. ANESTHESIA: General endotracheal. ANESTHESIOLOGIST: Dr. Flores. PROCEDURE: Laparoscopy, laparoscopic cholecystectomy. DESCRIPTION OF PROCEDURE: Under general endotracheal anesthesia, with the patient's skin prepped and draped, a supraumbilical incision was made and Veress needle inserted by the hanging drop technique to establish pneumoperitoneum to 15 mmHg pressure by insufflation with carbon dioxide. With the abdomen fully distended, the needle was removed and replaced with a 5 mm trocar port through which a 0-degree viewing laparoscope was inserted and under direct vision, 5 and 10 mm ports were inserted through the anterior axillary line on the right flank and subxiphoid skin respectively. The laparoscopic examination was performed. It revealed a densely scarred gallbladder, which was contracted and full of stones, which was attached to the omentum and the transverse colon. Lysis of adhesions was accomplished bluntly. The gallbladder was placed on tension. The cystic duct and cystic artery were meticulously dissected circumferentially and skeletonized of much scar tissue. The structures were traced into the hepatocystic triangle so as to minimize the potential for inadvertent injury to the common bile duct. At this point, the cystic artery and cystic duct were divided between metallic clips and the gallbladder resected from its liver bed by electrocautery and traction. The fully mobilized gallbladder was removed from the peritoneal cavity by placement in a specimen extraction bag and this was retrieved through the subxiphoid 10 mm port site. The right upper quadrant was then irrigated, irrigant was aspirated. Hemostasis was meticulously accomplished, found to be complete. At the time of the termination of procedure, there was no evidence of bleeding from either the port sites or from the cholecystectomy site. A 10 mm Macho-Faith drain was placed underneath the right lobe of the liver due to the chronicity of the inflammation, exteriorized through the right flank 5 mm trocar port site and secured with a 2-0 nylon suture. Following further assertion of complete hemostasis and following irrigation of the right upper quadrant, instrumentation was withdrawn. The fascial defect was closed after evacuation of the pneumoperitoneum. Skin approximated using Monocryl sutures, Dermabond glue and Steri-Strips. The patient remained stable throughout the procedure, left the operating room following an accurate needle and sponge count. MD ROBERT Patel/MYNOR TID: [id number] RECEIPT: [id number]
[2024-07-04] MEDS ORDERED: NITROGLYCERIN 0.4 MG SL TAB SL PRN (14:15)
--- NOTE | 2024-07-04 14:41 | DVHHP2 ---
Review of Systems Allergies: Coded Allergies: Benzalkonium Chloride (Verified Allergy, Unknown, 03/16/24) Benzonatate (Verified Allergy, Unknown, 03/16/24) Cetirizine (Verified Allergy, Unknown, 03/16/24) Edetic Acid (Verified Allergy, Unknown, 03/16/24) Tiotropium (Verified Allergy, Unknown, 03/16/24) Medications Current Medications Medications Dose Ordered Sig/Sandra Route Start Time Stop Time Status Last Admin Dose Admin Hydromorphone HCl 0.5 mg Q10M PRN IV 07/04/24 09:00 07/04/24 15:00 Hydromorphone HCl 0.25 mg Q10M PRN IV 07/04/24 09:00 07/04/24 15:00 Nitroglycerin 0.4 mg Q5MINP PRN SL 07/04/24 14:15 UNV Morphine Sulfate 2 mg Q30M PRN IV 07/04/24 14:15 UNV Exam Vital Signs Vital Signs Date Time Temp Pulse Resp B/P (MAP) Pulse Ox O2 Delivery O2 Flow Rate FiO2 07/04/24 10:17 Nasal Cannula 4.0 99 07/04/24 10:17 99 07/04/24 08:35 97.5 57 20 138/71 (93) 97.5 Labs/Xrays Labs Test 07/02/24 10:19 Range/Units White Blood Count 5.1 4.4-10.8 10^3/uL Red Blood Count 5.14 4.0-5.20 10^6/uL Hemoglobin 13.7 12.2-16.2 g/dL Hematocrit 41.8 36.0-46.0 % Mean Corpuscular Volume 81.5 80.0-100.0 fL Mean Corpuscular Hemoglobin 26.7 L 28.0-32.0 pg Mean Corpuscular Hemoglobin Concent 32.8 32.0-36.0 g/dL Red Cell Distribution Width 15.0 H 11.8-14.3 % Platelet Count 195 140-450 10^3/uL Mean Platelet Volume 10.3 6.9-10.8 fL Neutrophils (%) (Auto) 49.6 37.0-80.0 % Lymphocytes (%) (Auto) 35.6 10.0-50.0 % Monocytes (%) (Auto) 12.1 H 0.0-12.0 % Eosinophils (%) (Auto) 1.9 0.0-7.0 % Basophils (%) (Auto) 0.8 0.0-2.0 % Neutrophils # (Auto) 2.5 1.6-8.6 10 ^3/uL Lymphocytes # (Auto) 1.8 0.4-5.4 10 ^3/uL Monocytes # (Auto) 0.6 0-1.3 10 ^3/uL Eosinophils # (Auto) 0.1 0-0.8 10 ^3/uL Basophils # (Auto) 0 0-0.2 10 ^3/uL Nucleated Red Blood Cells 0.0 % Prothrombin Time 10.5 9.3-11.8 sec Prothrombin Time INR 0.99 0.9-1.15 Activated Partial Thromboplast Time 27.3 24.5-34.5 SEC Urine Color Yellow Yellow Urine Clarity Cloudy H Clear Urine pH 6.0 5.0-9.0 Urine Specific [place] 1.018 1.001-1.035 Urine Protein Trace H Negative Urine Ketones Negative Negative Urine Blood Negative Negative /uL Urine Nitrite Negative Negative Urine Bilirubin Negative Negative Urine Urobilinogen Normal Negative mg/dL Urine Leukocyte Esterase 3+ Negative /uL Urine RBC 2 0 - 4 /hpf Urine Microscopic WBC 34 H 0-5 /HPF Urine Squamous Epithelial Cells Mod <5 /hpf Urine Bacteria Few H None Seen /hpf Urine Glucose Normal Normal mg/dL Sodium Level 142 136-145 mmol/L Potassium Level 3.3 L 3.5-5.1 mmol/L Chloride Level 104 98-107 mmol/L Carbon Dioxide Level 30 20-31 mmol/L Anion Gap 8 5-15 Blood Urea Nitrogen 14 9-23 mg/dL Creatinine 0.98 0.550-1.02 mg/dL Glomerular Filtration Rate Calc 64 >90 mL/min BUN/Creatinine Ratio 14.3 10.0-20.0 Serum Glucose 90 74-106 mg/dL Calcium Level 10.1 8.7-10.4 mg/dL Total Bilirubin 0.4 0.2-1.0 mg/dL Aspartate Amino Transferase (AST) 11 L 13-40 U/L Alanine Aminotransferase (ALT) < 9 7-40 U/L Alkaline Phosphatase 62 46-116 U/L Total Protein 7.4 5.7-8.2 g/dL Albumin 4.5 3.2-4.8 g/dL Assessment/Plan Assessment/Plan see dictated note Plan discussed with: Patient My Orders Orders - WYATT CABRERA MD Procedure Category Date Status Time Admit ADMIT 07/04/24 Transmitted 14:08 Oxygen By Nasal RT 07/04/24 Transmitted Cannula 14:08 Nitroglycerin PHA 07/04/24 Logged Sublingual (Ntrostat 14:15 Morphine Sulfate PHA 07/04/24 Logged Injection 14:15 Notify Md Of Changes NO 07/04/24 In Process From Base 14:08 Emergency Dysrhythmia NO 07/04/24 In Process Protocol 14:08 Rhythm Strips Once NO 07/04/24 In Process Every Shift 14:08 Stat Ekg For Chest [facility] 07/04/24 In Process Pain 14:08 Date of Service: Jul 04, 2024 Billing Provider: WYATT CABRERA MD Common Visit Codes: [id number] INP/OBS CARE (HIGH) WYATT CABRERA MD Jul 04, 2024 14:41
[2024-07-04 14:45] VITALS: BP 120/64; PULSE 73; RESP 16; TEMP 97.5; O2SAT 92
[2024-07-04] MEDS ORDERED: hydrALAZINE HCL 20 MG/ML VL IV PRN (14:45)
[2024-07-04] MEDS ORDERED: ONDANSETRON HCL 4 MG/2 ML VIAL IV PRN (14:45)
[2024-07-04] MEDS ORDERED: ACETAMINOPHEN 325 MG TAB PO PRN (14:45)
--- NOTE | 2024-07-04 14:55 | DVHHP ---
ADMIT DATE: 07/04/2024 HISTORY OF PRESENT ILLNESS: The patient is a 63-year-old lady who was admitted after she underwent laparoscopic cholecystectomy for cholelithiasis and chronic cholecystitis. The patient at this time denies any significant pain. No chest pain or shortness of breath. No nausea or vomiting. REVIEW OF SYSTEMS: Review of rest of systems otherwise currently negative. PAST MEDICAL HISTORY: Significant for hypertension, anxiety, sarcoidosis, previous history of hydronephrosis as well as previous history of PE. MEDICATIONS: Include amlodipine, losartan, Celexa, Protonix. ALLERGIES: Several and listed in the records. SOCIAL HISTORY: No history of smoking or alcohol. FAMILY HISTORY: Negative. PHYSICAL EXAMINATION: GENERAL: The patient is awake, alert. VITAL SIGNS: Temperature 97.5, pulse 57 per minute, blood pressure 130/51. SHEENT: Unremarkable. NECK: There is no JVD, no pedal edema. LUNGS: Equal bilaterally. No added sounds. CARDIOVASCULAR SYSTEM: S1, S2 is regular. No murmurs. ABDOMEN: Soft. Bowel sounds are hypoactive. NEUROLOGIC: Nonfocal. MUSCULOSKELETAL: Normal. ASSESSMENT AND PLAN: * Hypertension, for which the patient's blood pressure will be monitored. * Urinary tract infection for which urine culture will be obtained and she will be placed on IV Rocephin. * History of sarcoidosis. * History of pulmonary embolism. * History of kidney stones. * History of hydronephrosis. * Obesity. * Status post laparoscopic cholecystectomy for cholelithiasis and chronic cholecystitis. The patient was placed on pain medications as well as IV antibiotics. MD ANKUR Valentin/DERREK TID: [id number] RECEIPT: [id number]
[2024-07-04 15:31] VITALS: BP 120/64; PULSE 73; RESP 16; TEMP 97.5; O2SAT 92
[2024-07-04] MEDS: D5W/SOD CHL 0.45%/KCL 20MEQ 1,000 ML IV SCH (15:58)
[2024-07-04] MEDS: cefTRIAXone 1GM/50ML D5W 50 ML IV ONE (15:59)
[2024-07-04] MEDS: MORPHINE SULFATE INJ 2 MG/ml SYRG IV PRN (16:02)
[2024-07-04 17:00] VITALS: BP 125/67; PULSE 71; RESP 17; TEMP 99.1; O2SAT 92
[2024-07-04 20:00] VITALS: PULSE 72; RESP 17; O2SAT 92
[2024-07-04] MEDS: HYDROcodone-ACET 5/325MG TAB PO PRN (23:12)
[2024-07-05 01:00] VITALS: BP 126/65; PULSE 62; RESP 17; TEMP 98.2; O2SAT 92
[2024-07-05 05:00] VITALS: BP 133/67; PULSE 60; RESP 17; TEMP 97.9; O2SAT 95
[2024-07-05 07:20] LABS: Basophils # (auto) 0.1 10 ^3/uL (0-0.2); Basophils % (auto) 0.5 % (0.0-2.0); Eosinophils # (auto) 0 10 ^3/uL (0-0.8); Eosinophils % (auto) 0.2 % (0.0-7.0); Hematocrit 37.6 % (36.0-46.0); Hemoglobin 12.6 g/dL (12.2-16.2); Lymphocytes # (auto) 1.2 10 ^3/uL (0.4-5.4); Lymphocytes % (auto) 9.8 % (10.0-50.0); Mean Corpuscular Hgb Conc. 33.5 g/dL (32.0-36.0); Mean Corpuscular Volume 80.5 fL (80.0-100.0); Monocytes # (auto) 0.9 10 ^3/uL (0-1.3); Monocytes % (auto) 7.8 % (0.0-12.0); Neutrophils # (auto) 9.8 10 ^3/uL (1.6-8.6); Neutrophils % (auto) 81.7 % (37.0-80.0); Nucleated Red Blood Cells % 0.1 %; Platelet Count (auto) 170 10^3/uL (140-450); Red Blood Cells 4.67 10^6/uL (4.0-5.20); Red Cell Distribution Width 15.1 % (11.8-14.3); White Blood Cell 11.9 10^3/uL (4.4-10.8)
[2024-07-05 07:44] LABS: Alanine Aminotransferase 20 U/L (7-40); Albumin 4.2 g/dL (3.2-4.8); Alkaline Phosphatase 56 U/L (46-116); Anion Gap 8 (5-15); Aspartate Aminotransferase 26 U/L (13-40); BUN/Creatinine Ratio 11.9 (10.0-20.0); Blood Urea Nitrogen 10 mg/dL (9-23); Calcium 9.5 mg/dL (8.7-10.4); Carbon Dioxide 27 mmol/L (20-31); Chloride 104 mmol/L (98-107); Glucose 120 mg/dL (74-106); Potassium 3.8 mmol/L (3.5-5.1); Sodium 139 mmol/L (136-145)
[2024-07-05 07:45] LABS: Bilirubin, Total 0.4 mg/dL (0.2-1.0); Total Protein 6.7 g/dL (5.7-8.2)
[2024-07-05 08:10] VITALS: PULSE 59; RESP 16; O2SAT 97
[2024-07-05] MEDS: cefTRIAXone 1GM/50ML D5W 50 ML IV SCH (08:53)
[2024-07-05] MEDS: ENOXAPARIN SOD 40 MG/0.4 ML SYRINGE SC SCH (08:53)
[2024-07-05 09:00] VITALS: BP 135/70; PULSE 59; RESP 16; TEMP 97.9; O2SAT 97
[2024-07-05 12:54] LABS: Urine Bacteria None Seen /hpf (None Seen)
[2024-07-05 13:00] VITALS: BP 146/57; PULSE 65; RESP 20; TEMP 98.7; O2SAT 93
[2024-07-05 13:05] LABS: Urine Blood Negative /uL (Negative); Urine Clarity Clear (Clear); Urine Color Colorless (Yellow); Urine Protein, UAD Negative (Negative); Urine Squamous Epithelial Cell FEW /hpf (<5); Urine Urobilinogen Normal (Negative); Urine WBC 3 /HPF (0-5); Urine pH 6.5 (5.0-9.0)
--- NOTE | 2024-07-05 14:11 | DVHPN2 ---
Progress Note Date Seen: Jul 05, 2024 Has the PT tested + for MRSA If YES, has PT been informed?: No Medical Necessity Reason Pt with a Central, PICC or Fol: No Subjective Patient reports: No new complaints, Feels better Review of Systems: HEENT:Normal, CVS:Normal, RESPIRATORY:Normal, GI:Normal, :Normal, MSK:Normal, NEURO:Normal Objective vital signs Vital Sign Date Time Temp Pulse Resp B/P (MAP) Pulse Ox O2 Delivery O2 Flow Rate FiO2 07/05/24 13:00 98.7 65 20 146/57 (86) 93 98.7 07/05/24 08:10 Nasal Cannula* 2 28 Total Intake and Output 07/04/24 07/04/24 07/05/24 15:00 23:00 07:00 Intake Total 100 ml 168 ml 900 ml Output Total 29 ml Balance 100 ml 139 ml 900 ml medications Current Medications Medications Dose Ordered Sig/Sandra Route Start Time Stop Time Status Last Admin Dose Admin Nitroglycerin 0.4 mg Q5MINP PRN SL 07/04/24 14:15 Morphine Sulfate 2 mg Q30M PRN IV 07/04/24 14:15 Potassium Chloride/Dextrose/ Sod Cl 1,000 ml @ 75 mls/hr [id number] IV 07/04/24 14:45 07/05/24 06:39 75 MLS/HR Morphine Sulfate 2 mg Q4HPRN PRN IV 07/04/24 14:45 07/04/24 16:02 2 MG Acetaminophen/ Hydrocodone Bitart 1 tab Q6HPRN PRN PO 07/04/24 14:45 07/05/24 12:25 1 TAB Acetaminophen 650 mg Q6HP PRN PO 07/04/24 14:45 Ondansetron HCl 4 mg Q6HPRN PRN IV 07/04/24 14:45 Hydralazine HCl 10 mg Q6HP PRN IV 07/04/24 14:45 Ceftriaxone Sodium 50 ml @ 100 mls/hr DAILY@09 IV 07/05/24 09:00 07/05/24 08:53 100 MLS/HR Enoxaparin Sodium 40 mg DAILY SC 07/05/24 10:00 07/05/24 08:53 40 MG Examination: GENERAL:Normal, HEENT:Normal, NECK:Normal, LUNGS:Normal, CVS:Normal, ABDOMEN:Abnormal (DAVE drain), MSK:Normal, SKIN:Normal laboratory and microbiology Laboratory Tests 07/05/24 07:04 Test 07/05/24 07:04 Range/Units Serum Glucose 120 H 74-106 mg/dL Problem List/Assessment/Plan Problem List/Assessment/Plan 07/05/24 patient doing well no new complaints, abdomen soft non distended, appropriately tender, DAVE drain serous fluid, tolerating diet, denies nausea or vomiting, labs and notes reviewed patient ok to discharge per surgery point of view, patient to follow up in clinic on Tuesday, september shower in 72 hours Plan discussed with: Patient, Other (Dr. Herrera ) FERNANDO DUNHAM MODEL MAKER APPRENTICE Jul 05, 2024 14:11
[2024-07-05] MEDS ORDERED: CEPH500T PO (14:54)
[2024-07-05] MEDS ORDERED: DOCU-94 PO (14:54)
[2024-07-05] MEDS ORDERED: HYDR1TAB97 PO (14:54)
--- NOTE | 2024-07-05 16:40 | DVHDS ---
DATE OF DISCHARGE: 07/05/2024 HISTORY OF PRESENT ILLNESS: The patient is a 63-year-old lady who was admitted after she underwent laparoscopic cholecystectomy for cholelithiasis and chronic cholecystitis. The patient has a previous history of hypertension, sarcoidosis, pulmonary embolism. HOSPITAL COURSE: The patient did well postoperatively. The patient has tolerated oral diet. She has now been cleared for discharge by Surgery. She will be discharged home, to be placed on Bradshaw p.r.n. for pain, cephalexin 500 mg t.i.d. for 7 days and Colace p.r.n. for constipation. She will follow up with Dr. Herrera in 1 week. FINAL DIAGNOSES: Therefore, * Hypertension. * History of sarcoidosis. * History of pulmonary embolism. * Obesity. * Status post laparoscopic cholecystectomy for cholelithiasis and chronic cholecystitis. Time spent in discharge planning and review of plan with the patient and nursing was 38 minutes. MD ANKUR Valentin/CRYSTAL TID: [id number] RECEIPT: [id number]
[2024-07-05 17:19] VITALS: BP 136/64; PULSE 60; RESP 18; TEMP 98; O2SAT 96
== END 2024-07-05 17:25 | disposition home or self-care (01) | DRG 419 ==
LOC: SUR 08:06 → OVERFLOW 14:08 → WEST WING 14:57
PROVIDERS: ADMIT Internal Medicine; ATTEND Internal Medicine
PROC: 0FT44ZZ Resection of Gallbladder, Percutaneous Endoscopic Approach (ICD-10-PCS; principal; 2024-07-04 09:14)
DX: K80.12 Calculus of gallbladder with acute and chronic cholecystitis without obstruction (principal); I10 Essential (primary) hypertension; F41.9 Anxiety disorder, unspecified; E66.9 Obesity, unspecified; K59.00 Constipation, unspecified; Z86.711 Personal history of pulmonary embolism; Z87.442 Personal history of urinary calculi; Z68.31 Body mass index [BMI] 31.0-31.9, adult; Z79.899 Other long term (current) drug therapy
CPT/HCPCS: 36415; 80053; 81001; 85025; 85610; 85730; 86850; 86900; 86901; 87070; 87075; 87086; 87205; G0378; J0330; J2250; J2405; J2704; J3490

== ENCOUNTER 2025-01-10 08:09 | Inpatient (IN) | payer MEDICARE, OTHER ==
[~2025-01-10] VITALS: Ht 165.1 cm; Wt 85.2 kg
[~2025-01-10 08:09] MED LIST changes: +CEPH500T PO; +DOCU-94 PO; +HYDR1TAB97 PO
--- NOTE | 2025-01-10 08:38 | ED.PDOC ---
History of Present Illness HPI Comments 64-year-old female presents to the ER with hypertension, kidney stones, DVT, nephrostomy tube: Recent Surgical history of left knee on December 07 chief complaint of chest pain. Patient reports on having right-sided chest pain for three days with shortness a breath. Patient notes on taking inhaler prior to arrival to the ED as well as taking blood thinners. patient states "burping and hiccuping more". Denies chills, fever, N/V/D. No other associated symptoms, modifiers, recent injuries or sick contacts present at this time. Chief Complaint: Chest Pain Time Seen by MD: 08:35 Primary Care Provider: SANDY BANDA Reviewed Notes: Nurses Notes, Medications, Allergies Allergies: Coded Allergies: Benzalkonium Chloride (Verified Allergy, Unknown, 03/16/24) Benzonatate (Verified Allergy, Unknown, 03/16/24) Cetirizine (Verified Allergy, Unknown, 03/16/24) Edetic Acid (Verified Allergy, Unknown, 03/16/24) Tiotropium (Verified Allergy, Unknown, 03/16/24) Home Meds Active Scripts Docusate Sodium (Colace) 100 Mg Cap, 100 MG PO BIDP PRN for 15 Days, #40 CAP Prov:WYATT CABRERA MD 07/05/24 Cephalexin Monohydrate (Cephalexin) 500 Mg Tab, 1 TAB PO TID for 7 Days, #21 TAB Prov:WYATT CABRERA MD 07/05/24 Hydrocodone-Acetaminophen (Hydrocodone/Acetaminophen 5-325 mg) 1 Tab Tab, 1 TAB PO TIDP PRN for 6 Days, #18 TAB Prov:WYATT CABRERA MD 07/05/24 Pantoprazole Sodium Sesquihydr (Pantoprazole Sodium) 40 Mg Tab, 40 MG PO DAILY@0600 for 30 Days, #30 TAB Prov:NOHEMY ROLDAN RESIDENT 01/19/24 Reported Medications Cholecalciferol (VITAMIN D3) 1,000 Unit Chw, 1000 UNIT OR DAILY, TAB.CHEW 03/16/24 Amlodipine Besylate (Amlodipine Besylate) 10 Mg Tab, 1 TAB PO DAILY for HTN, #30 TAB 5 Refills 01/12/24 Losartan Potassium (Losartan Potassium) 50 Mg Tab, 1 TAB PO DAILY for HTN, #30 TAB 5 Refills 01/12/24 Citalopram Hydrobromide (Celexa) 20 Mg Tab, 20 MG PO DAILY for anxiety, TAB 01/12/24 Information Source: Patient Mode of Arrival: Ambulatory Severity: Moderate Timing: Days Duration: Since onset, Days Prehospital treatment: None Past Medical History PAST MEDICAL HISTORY: HTN, Kidney Stones Past Medical History (Other): DVT, nephrostomy to Surgical History (Other): Recent left knee surgery on December 07 WEBBING TACKER History: No Pertinent WEBBING TACKER History Family History Family History: Reviewed,noncontributory to illness, Unknown Social History Smoker: Non-Smoker Alcohol: Denies ETOH Use Drugs: Denies Drug Use Lives In: Home Constitutional: denies: chills, diaphoresis, fatigue, fever, malaise, sweats, weakness, others EENTM: denies: blurred vision, double vision, ear bleeding, ear discharge, ear drainage, ear pain, ear ringing, eye pain, eye redness, hearing loss, mouth pain, mouth swelling, nasal discharge, nose bleeding, nose congestion, nose pain, photophobia, tearing, throat pain, throat swelling, voice changes, others Respiratory: reports: shortness of breath; denies: cough, hemoptysis, orthopnea, SOB at rest, SOB with excertion, stridor, wheezing, others Cardiovascular: reports: chest pain; denies: dizzy spells, diaphoresis, Dyspnea on exertion, edema, irregular heart beat, left arm pain, lightheadedness, palpitations, PND, syncope, others Gastrointestinal: denies: abdomen distended, abdominal pain, blood streaked bowels, constipated, diarrhea, dysphagia, difficulty swallowing, hematemesis, melena, nausea, poor appetite, poor fluid intake, rectal bleeding, rectal pain, vomiting, others Genitourinary: denies: abnormal vagina bleeding, burning, dyspareunia, dysuria, flank pain, frequency, hematuria, incontinence, pain, , vagina discharge, urgency, others Neurological: denies: dizziness, fainting, headache, left sided numbness, left sided weakness, numbness, paresthesia, pre-existing deficit, right sided numbness, right sided weakness, seizure, speech problems, tingling, tremors, weakness, others Musculoskeletal: denies: back pain, gout, joint pain, joint swelling, muscle pain, muscle stiffness, neck pain, others Integumetry: denies: bruises, change in color, change in hair/nails, dryness, laceration, lesions, lumps, rash, wounds, others Allergic/Immunocompromised: denies: Difficulty Healing, Frequent Infections, Hives, Itching, others Hematologic/Lymphatic: denies: anemia, blood clots, easy bleeding, easy bruising, swollen glands, others Endocrine: denies: excessive hunger, excessive sweating, excessive thirst, excessive urination, flushing, intolerance to cold, intolerance to heat, unexplained weight gain, unexplained weight loss, others Psychiatric: denies: anxiety, bipolar disorder, depression, hopeless, panic disorder, schizophrenia, sleepless, suicidal, others All Other Systems: Reviewed and Negative Physical Exam General Appearance: Moderate Distress, Normal HEENT: Normal ENT Inspection, Pharynx Normal, TMs Normal Neck: Full Range of Motion, Non-Tender, Normal, Normal Inspection Respiratory: Chest Non-Tender, Lungs Clear, No Accessory Muscle Use, No Respir atory Distress, Normal Breath Sounds Cardiovascular: No Edema, No JVD, No Murmur, No Gallop, Normal Peripheral Pulses, Regular Rate/Rhythm Breast Exam: Deferred Gastrointestinal: No Organomegaly, Non Tender, No Pulsatile Mass, Normal Bowel Sounds, Soft Genitalia: Deferred Pelvic: Deferred Rectal: Deferred Extremities: No calf tenderness, Normal capillary refill, Normal inspection, Normal range of motion, Non-tender, No pedal edema Musculoskeletal : Apperance: Normal Neurologic: Alert, field education director II-XII nml as Tested, No Motor Deficits, Normal Affect, Normal Mood, No Sensory Deficits Cerebellar Function: NOT DONE Reflexes: NOT DONE Skin: Dry, Normal Color, Warm Peripheral Pulses: 3+ Radial (R), 3+ Radial (L) Lymphatic: No Adenopathy Was a procedure done? Was a procedure done?: No Differential Dx Considerations may include: Anemia Electrolyte imbalance X-Ray, Labs, Meds, VS Vital Signs Date Time Temp Pulse Resp B/P (MAP) Pulse Ox O2 Delivery O2 Flow Rate FiO2 01/10/25 09:12 98.5 68 19 112/61 (78) 98 98.5 01/10/25 09:12 68 19 98 Room Air* 0 21 01/10/25 09:00 75 01/10/25 08:17 79 01/10/25 08:12 98.5 76 18 129/71 97 98.5 Lab Test 01/10/25 09:36 01/10/25 09:23 01/10/25 08:35 Range/Units Troponin I High Sensitivity 3 L 3 L </=34 ng/L Urine Color Light-yellow Yellow Urine Clarity Cloudy H Clear Urine pH 7.0 5.0-9.0 Urine Specific [place] 1.019 1.001-1.035 Urine Protein 1+ H Negative Urine Ketones 1+ H Negative Urine Blood 2+ H Negative /uL Urine Nitrite Negative Negative Urine Bilirubin Negative Negative Urine Urobilinogen 3 H Negative mg/dL Urine Leukocyte Esterase 2+ Negative /uL Urine RBC 276 0 - 4 /hpf Urine Microscopic WBC 24 H 0-5 /HPF Urine Squamous Epithelial Cells Many <5 /hpf Urine Bacteria Mod H None Seen /hpf Urine Glucose Normal Normal mg/dL White Blood Count 9.6 4.4-10.8 10^3/uL Red Blood Count 4.92 4.0-5.20 10^6/uL Hemoglobin 13.4 12.2-16.2 g/dL Hematocrit 41.4 36.0-46.0 % Mean Corpuscular Volume 84.2 80.0-100.0 fL Mean Corpuscular Hemoglobin 27.3 L 28.0-32.0 pg Mean Corpuscular Hemoglobin Concent 32.4 32.0-36.0 g/dL Red Cell Distribution Width 15.8 H 11.8-14.3 % Platelet Count 193 140-450 10^3/uL Mean Platelet Volume 10.6 6.9-10.8 fL Neutrophils (%) (Auto) 66.6 37.0-80.0 % Lymphocytes (%) (Auto) 20.3 10.0-50.0 % Monocytes (%) (Auto) 12.0 0.0-12.0 % Eosinophils (%) (Auto) 0.6 0.0-7.0 % Basophils (%) (Auto) 0.5 0.0-2.0 % Neutrophils # (Auto) 6.4 1.6-8.6 10 ^3/uL Lymphocytes # (Auto) 1.9 0.4-5.4 10 ^3/uL Monocytes # (Auto) 1.1 0-1.3 10 ^3/uL Eosinophils # (Auto) 0.1 0-0.8 10 ^3/uL Basophils # (Auto) 0 0-0.2 10 ^3/uL Nucleated Red Blood Cells 0.0 % D-Dimer, Quantitative 1.99 H 0.0-0.49 mg/L FEU Sodium Level 141 136-145 mmol/L Potassium Level 3.4 L 3.5-5.1 mmol/L Chloride Level 106 98-107 mmol/L Carbon Dioxide Level 23 20-31 mmol/L Anion Gap 12 5-15 Blood Urea Nitrogen 8 L 9-23 mg/dL Creatinine 0.90 0.550-1.02 mg/dL Glomerular Filtration Rate Calc 71 >90 mL/min BUN/Creatinine Ratio 8.9 L 10.0-20.0 Serum Glucose 111 H 74-106 mg/dL Calcium Level 9.3 8.7-10.4 mg/dL Current Medications Medications (Trade) Dose Ordered Sig/Sandra Route Start Time Stop Time Status Last Admin Ceftriaxone Sodium 50 ml @ 100 mls/hr ONCE ONCE IV 01/10/25 11:15 01/10/25 11:44 DC 01/10/25 11:33 Acetaminophen/ Hydrocodone Bitart ([place] 5/325MG Tab) 1 tab ONCE ONCE PO 01/10/25 11:15 01/10/25 11:16 DC 01/10/25 11:33 Regadenoson (Lexiscan) 0.4 mg ONCE ONCE IV 01/10/25 13:15 01/10/25 13:17 DC 01/10/25 13:47 Patient alert. Complaining of chest pain. Vitals stable. Answering all questions. Was given pain medication. D-dimer slightly elevated. Urinalysis shows UTI. Was given Rocephin. Establish intravenous access. Was given fluids. Explained to the patient. Continue monitoring. Time of 1ST Reevaluation: 09:05 Reevaluation 1ST: Unchanged Patient Education/Counseling: Diagnosis, Treatment, Prognosis Family Education/Counseling: No Family Present SEPSIS Sepsis Screen Date sepsis recognized/suspect: Jan 10, 2025 Time Sepsis recognized/suspect: 815 Recent Procedure: Yes On Antibiotic Therapy: No Respiratory Rate >20: No Heart Rate >90: No Temp<36 C (96.8 F) or >38.3 C: No SBP <90 or MAP <65 mmHG: No New Acute Mental Status Change: No Is the patient on CPAP, BIPAP,: No Physician Orders Electrocardigram (01/10/25 08:11) Electrocardigram (01/10/25 09:11) Electrocardigram (01/10/25 11:11) Lt Lower Dvt (01/10/25 08:33) Saline Lock (01/10/25 09:15) Ct Angio Chest Contrast (01/10/25 11:43) Cardiolite Multiple (01/10/25 11:43) *Consult / (01/10/25 11:43) Npo (Nothing By Mouth) Diet (01/11/25 Breakfast) Cardiac Diet-2gna,Lofat,Lochol (01/10/25 Lunch) Complete Blood Count (01/11/25 05:00) Complete Blood Count (01/12/25 05:00) Complete Blood Count (01/13/25 05:00) Complete Blood Count (01/14/25 05:00) Complete Blood Count (01/15/25 05:00) Comprehensive Metabolic Panel (01/11/25 05:00) Comprehensive Metabolic Panel (01/12/25 05:00) Comprehensive Metabolic Panel (01/13/25 05:00) Comprehensive Metabolic Panel (01/14/25 05:00) Comprehensive Metabolic Panel (01/15/25 05:00) Citalopram Tablet (Celexa Tablet) (01/11/25 10:00) Losartan Tablet (Cozaar Tablet) (01/11/25 10:00) Pantoprazole Tablet (Protonix Tablet) (01/11/25 06:00) Amlodipine Tablet (Norvasc Tablet) (01/11/25 10:00) Cholecalciferol Tablet (Vitamin D3 Table (01/11/25 10:00) Ceftriaxone 1gm/50ml D5w (Rocephin) (01/11/25 09:00) Urine Bacterial Culture (01/10/25 11:48) Vital Signs Date Time Temp Pulse Resp B/P (MAP) Pulse Ox O2 Delivery O2 Flow Rate FiO2 01/10/25 09:12 98.5 68 19 112/61 (78) 98 98.5 01/10/25 09:12 68 19 98 Room Air* 0 21 01/10/25 09:00 75 01/10/25 08:17 79 01/10/25 08:12 98.5 76 18 129/71 97 98.5 Laboratory Tests Test 01/10/25 08:35 White Blood Count 9.6 10^3/uL (4.4-10.8) Medications Medications Dose Ordered Sig/Sandra Route Start Time Stop Time Status Last Admin Dose Admin Acetaminophen/ Hydrocodone Bitart 1 tab ONCE ONCE PO 01/10/25 11:15 01/10/25 11:16 DC 01/10/25 11:33 Ceftriaxone Sodium 50 ml @ 100 mls/hr ONCE ONCE IV 01/10/25 11:15 01/10/25 11:44 DC 01/10/25 11:33 Regadenoson 0.4 mg ONCE ONCE IV 01/10/25 13:15 01/10/25 13:17 DC 01/10/25 13:47 Departure 1 Departure Time of Disposition: 17:53 Impression: Primary Impression: Chest pain of unknown etiology Additional Impressions: UTI (urinary tract infection) Qualified Codes: N30.01 - Acute cystitis with hematuria Elevated d-dimer Disposition: ADMITTED INPATIENT Admit to: Med Surg Condition: Guarded Critical Care Note Critical Care Time?: Yes (90 min-critical care time only) Stability Stability form required: No Heart Score Heart Score: Heart Score Response (Comments) Value History Slightly Suspicious 0 EKG Normal 0 Age >65 2 Risk Factors >3 or Hx ASHD 2 Troponin Normal limit 0 Total 4 I personally scribed for ADEN CULVER MD ([email or web address]) on 01/10/25 at 08:38. Electronically submitted by Black Hogan ([email or web address]). ADEN CULVER MD Jan 10, 2025 08:38
[2025-01-10 08:54] LABS: Hematocrit 41.4 % (36.0-46.0); Hemoglobin 13.4 g/dL (12.2-16.2); Mean Corpuscular Hemoglobin 27.3 pg (28.0-32.0); Mean Corpuscular Volume 84.2 fL (80.0-100.0); Nucleated Red Blood Cells % 0.0 %
[2025-01-10 09:00] LABS: Anion Gap 12 (5-15); Carbon Dioxide 23 mmol/L (20-31); Chloride 106 mmol/L (98-107); Sodium 141 mmol/L (136-145)
[2025-01-10 09:01] LABS: Calcium 9.3 mg/dL (8.7-10.4)
[2025-01-10 09:04] LABS: Potassium 3.4 mmol/L (3.5-5.1)
--- NOTE | 2025-01-10 09:05 | DVH ---
US LT Lower DVT HISTORY: dvt COMPARISON: US BILAT LOWER DVT on DOS: 01/12/24 TECHNIQUE: Duplex doppler evaluation of the deep venous system of the lower extremity from the common femoral veins, superficial femoral vein, great saphenous vein, deep femoral vein, popliteal vein, an d calf veins, including color doppler and spectral/pulsed waveform analysis, was performed. FINDINGS: Left: - Common femoral vein: Compressible - Deep femoral vein: Compressible - Femoral vein: Compressible - Popliteal vein: Compressible - Posterior tibial vein: Waveforms present - Other: Nothing IMPRESSION: No left lower extremity deep venous thrombosis.
[2025-01-10 09:06] LABS: BUN/Creatinine Ratio 8.9 (10.0-20.0)
[2025-01-10 09:08] LABS: Blood Urea Nitrogen 8 mg/dL (9-23); Glucose 111 mg/dL (74-106)
[2025-01-10 09:12] VITALS: PULSE 68; RESP 19; O2SAT 98
[2025-01-10] MEDS: NITROGLYCERIN 0.4 MG SL TAB SL ONE (09:15)
[2025-01-10 10:03] LABS: Urine Protein, UAD 1+ (Negative)
[2025-01-10] MEDS: cefTRIAXone 1GM/50ML D5W 50 ML IV ONE (11:33)
[2025-01-10] MEDS: HYDROcodone-ACET 5/325MG TAB PO ONE (11:33)
[2025-01-10] MEDS ORDERED: DOCUSATE SOD 100 MG CAP PO PRN ×2 (11:45→14:30)
--- NOTE | 2025-01-10 11:48 | DVHHP2 ---
Admitting Diagnosis: Chest pain History of Present Illness 64-year-old female presents to the ER with hypertension, kidney stones, DVT, nephrostomy tube: Recent Surgical history of left knee on December 07 chief co mplaint of chest pain. Patient reports on having right-sided chest pain for three days with shortness a breath. Patient notes on taking inhaler prior to arrival to the ED as well as taking blood thinners. patient states "burping and hiccuping more". Denies chills, fever, N/V/D. No other associated symptoms, modifiers, recent injuries or sick contacts present at this time. 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 History Family History Family History: Reviewed,noncontributory to illness, Unknown Social History Smoker: Non-Smoker Alcohol: Denies ETOH Use Drugs: Denies Drug Use Lives In: Home Patient Family History: Cardiovascular disease G8 MOTHER Chronic obstructive pulmonary disease G8 MOTHER FH: lung cancer G8 MOTHER Hypertension G8 FATHER Sarcoidosis G8 FATHER Allergies: Coded Allergies: Benzalkonium Chloride (Verified Allergy, Unknown, 03/16/24) Benzonatate (Verified Allergy, Unknown, 03/16/24) Cetirizine (Verified Allergy, Unknown, 03/16/24) Edetic Acid (Verified Allergy, Unknown, 03/16/24) Tiotropium (Verified Allergy, Unknown, 03/16/24) Home Meds Active Scripts Docusate Sodium (Colace) 100 Mg Cap, 100 MG PO BIDP PRN for 15 Days, #40 CAP Prov:WYATT CABRERA MD 07/05/24 Cephalexin Monohydrate (Cephalexin) 500 Mg Tab, 1 TAB PO TID for 7 Days, #21 TAB Prov:WYATT CABRERA MD 07/05/24 Hydrocodone-Acetaminophen (Hydrocodone/Acetaminophen 5-325 mg) 1 Tab Tab, 1 TAB PO TIDP PRN for 6 Days, #18 TAB Prov:WYATT CABRERA MD 07/05/24 Pantoprazole Sodium Sesquihydr (Pantoprazole Sodium) 40 Mg Tab, 40 MG PO DAILY@0600 for 30 Days, #30 TAB Prov:NOHEMY ROLDAN 01/19/24 Reported Medications Cholecalciferol (VITAMIN D3) 1,000 Unit Chw, 1000 UNIT OR DAILY, TAB.CHEW 03/16/24 Amlodipine Besylate (Amlodipine Besylate) 10 Mg Tab, 1 TAB PO DAILY for HTN, #30 TAB 5 Refills 01/12/24 Losartan Potassium (Losartan Potassium) 50 Mg Tab, 1 TAB PO DAILY for HTN, #30 TAB 5 Refills 01/12/24 Citalopram Hydrobromide (Celexa) 20 Mg Tab, 20 MG PO DAILY for anxiety, TAB 01/12/24 Vital Signs Vital Signs Date Time Temp Pulse Resp B/P (MAP) Pulse Ox O2 Delivery O2 Flow Rate FiO2 01/10/25 09:12 98.5 68 19 112/61 (78) 98 98.5 01/10/25 09:12 Room Air* 0 21 Physical Exam 64 years old woman, well nourished well developed. Mild distress HEENT-atraumatic, normocephalic Heart-regular rate and rhythm Lungs clear to auscultate bilaterally Abdomen soft nontender nondistended Musculoskeletal-right lower extremity nontender no cyanosis, level of lower extremity wrapped in compression stocking. No pain , dressing intact clean dry intact. Neuro-AO x3, no focal deficits SEPSIS Sepsis Screen Date sepsis recognized/suspect: Jan 10, 2025 Time Sepsis recognized/suspect: 815 Recent Procedure: Yes On Antibiotic Therapy: No Respiratory Rate >20: No Heart Rate >90: No Temp<36 C (96.8 F) or >38.3 C: No SBP <90 or MAP <65 mmHG: No New Acute Mental Status Change: No Is the patient on CPAP, BIPAP,: No Physician Orders Electrocardigram (01/10/25 08:11) Electrocardigram (01/10/25 09:11) Electrocardigram (01/10/25 11:11) Lt Lower Dvt (01/10/25 08:33) Saline Lock (01/10/25 09:15) D-Dimer (01/10/25 11:43) Ct Angio Chest Contrast (01/10/25 11:43) Cardiolite Multiple (01/10/25 11:43) *Consult / (01/10/25 11:43) Npo After Midnight (01/10/25 11:43) Npo (Nothing By Mouth) Diet (01/11/25 Breakfast) Cardiac Diet-2gna,Lofat,Lochol (01/10/25 Lunch) Complete Blood Count (01/11/25 05:00) Complete Blood Count (01/12/25 05:00) Complete Blood Count (01/13/25 05:00) Complete Blood Count (01/14/25 05:00) Complete Blood Count (01/15/25 05:00) Comprehensive Metabolic Panel (01/11/25 05:00) Comprehensive Metabolic Panel (01/12/25 05:00) Comprehensive Metabolic Panel (01/13/25 05:00) Comprehensive Metabolic Panel (01/14/25 05:00) Comprehensive Metabolic Panel (01/15/25 05:00) Citalopram Tablet (Celexa Tablet) (01/11/25 10:00) Docusate Sodium Capsule (Colace Capsule) (01/10/25 11:45) Losartan Tablet (Cozaar Tablet) (01/11/25 10:00) Pantoprazole Tablet (Protonix Tablet) (01/11/25 06:00) (Nf) Amlodipine Besylate (01/11/25 10:00) (Nf) Cholecalciferol (Vitamin D3) (01/11/25 10:00) Vital Signs Date Time Temp Pulse Resp B/P (MAP) Pulse Ox O2 Delivery O2 Flow Rate FiO2 01/10/25 09:12 98.5 68 19 112/61 (78) 98 98.5 01/10/25 09:12 68 19 98 Room Air* 0 21 01/10/25 09:00 75 01/10/25 08:17 79 01/10/25 08:12 98.5 76 18 129/71 97 98.5 Laboratory Tests Test 01/10/25 08:35 White Blood Count 9.6 10^3/uL (4.4-10.8) Medications Medications Dose Ordered Sig/Sandra Route Start Time Stop Time Status Last Admin Dose Admin Acetaminophen/ Hydrocodone Bitart 1 tab ONCE ONCE PO 01/10/25 11:15 01/10/25 11:16 DC 01/10/25 11:33 Ceftriaxone Sodium 50 ml @ 100 mls/hr ONCE ONCE IV 01/10/25 11:15 01/10/25 11:44 DC 01/10/25 11:33 Results Labs Test 01/10/25 09:36 01/10/25 09:23 01/10/25 08:35 Range/Units Troponin I High Sensitivity 3 L </=34 ng/L Urine Color Light-yellow Yellow Urine Clarity Cloudy H Clear Urine pH 7.0 5.0-9.0 Urine Specific [place] 1.019 1.001-1.035 Urine Protein 1+ H Negative Urine Ketones 1+ H Negative Urine Blood 2+ H Negative /uL Urine Nitrite Negative Negative Urine Bilirubin Negative Negative Urine Urobilinogen 3 H Negative mg/dL Urine Leukocyte Esterase 2+ Negative /uL Urine RBC 276 0 - 4 /hpf Urine Microscopic WBC 24 H 0-5 /HPF Urine Squamous Epithelial Cells Many <5 /hpf Urine Bacteria Mod H None Seen /hpf Urine Glucose Normal Normal mg/dL White Blood Count 9.6 4.4-10.8 10^3/uL Red Blood Count 4.92 4.0-5.20 10^6/uL Hemoglobin 13.4 12.2-16.2 g/dL Hematocrit 41.4 36.0-46.0 % Mean Corpuscular Volume 84.2 80.0-100.0 fL Mean Corpuscular Hemoglobin 27.3 L 28.0-32.0 pg Mean Corpuscular Hemoglobin Concent 32.4 32.0-36.0 g/dL Red Cell Distribution Width 15.8 H 11.8-14.3 % Platelet Count 193 140-450 10^3/uL Mean Platelet Volume 10.6 6.9-10.8 fL Neutrophils (%) (Auto) 66.6 37.0-80.0 % Lymphocytes (%) (Auto) 20.3 10.0-50.0 % Monocytes (%) (Auto) 12.0 0.0-12.0 % Eosinophils (%) (Auto) 0.6 0.0-7.0 % Basophils (%) (Auto) 0.5 0.0-2.0 % Neutrophils # (Auto) 6.4 1.6-8.6 10 ^3/uL Lymphocytes # (Auto) 1.9 0.4-5.4 10 ^3/uL Monocytes # (Auto) 1.1 0-1.3 10 ^3/uL Eosinophils # (Auto) 0.1 0-0.8 10 ^3/uL Basophils # (Auto) 0 0-0.2 10 ^3/uL Nucleated Red Blood Cells 0.0 % Sodium Level 141 136-145 mmol/L Potassium Level 3.4 L 3.5-5.1 mmol/L Chloride Level 106 98-107 mmol/L Carbon Dioxide Level 23 20-31 mmol/L Anion Gap 12 5-15 Blood Urea Nitrogen 8 L 9-23 mg/dL Creatinine 0.90 0.550-1.02 mg/dL Glomerular Filtration Rate Calc 71 >90 mL/min BUN/Creatinine Ratio 8.9 L 10.0-20.0 Serum Glucose 111 H 74-106 mg/dL Calcium Level 9.3 8.7-10.4 mg/dL Primary Diagnosis Chest pain right side rule out ACS Acute urinary tract infection Plan Start ceftriaxone 1 g q.day. Follow with the urine culture Troponin negative x3 Cardiac diet NPO after midnight for nuclear stress test Pulmonology Dr. Britton consult right-sided pain possible PE CT angio chest to rule out PE Pain control Antiemetic Full code Lovenox for DVT prophylaxis PPI for GI prophylaxis Plan discussed with: Patient Problems List: (1) Chest pain, rule out acute myocardial infarction Date of Service: Jan 10, 2025 Billing Provider: PRAVEEN BANDA MD Common Visit Codes: [id number] INP/OBS CARE (MOD) PRAVEEN BANDA MD Jan 10, 2025 11:48
[2025-01-10] MEDS: IOHEXOL 350 MG/ML 100ML IJ ONE (12:12)
--- NOTE | 2025-01-10 12:48 | DVH ---
Indication: right sided chest pain, prior PE, rule active PE Technique: CT axial images of the abdomen and pelvis are obtained with intravenous contrast. Coronal and sagittal reformats were obtained. Radiation Dose Information: CTDI volume is 5.92 mGy. Dose-length product is 2.54 mGy*cm Comparison: CT CT ANGIO CHEST CONTRAST on DOS: 01/11/24 FINDINGS: No filling defect within the main left and right pulmonary arteries. Segmental and subsegmental bran ches suboptimally opacified/ characterize. The trachea is patent. No pneumothorax. Bilateral pulmonary tree-in-bud nodularity. 5 mm Right lower lobe solid nodule. 7 mm right upper lobe pulmonary nodule. 4 mm right middle lobe pulmonary nodule. 3 mm left lower lobe pulmonary nodule.. Bilateral atelectasis. Tiny right pleural effusion Heart normal in size. Coronary artery calcification disease. Calcified mediastinal/hilar lymph nodes . No supraclavicular or axillary lymphadenopathy. There is moderate right hydronephrosis, incompletely characterized. Small hiatal hernia. Cholecystect leonel. No aggressive osseous process. IMPRESSION: No evidence for large pulmonary embolism. Diffuse bilateral pulmonary tree-in-bud nodularity which can be secondary to bronchiolitis, atypical infection, miliary spread carcinoma. Extensive mediastinal/hilar calcified lymphadenopathy likely sequela of remote granulomatous disease. Moderate right hydronephrosis, incompletely characterized. Recommend CT abdomen pelvis to evaluate. Small hiatal hernia. Pulmonary nodules up to 7 mm.. Recommend follow-up per Fleischner society criteria. Tiny right pleural effusion. Other findings as described.
[2025-01-10] MEDS: REGADENOSON 0.4 MG/5 ML SYRG IV ONE ×2 (13:47)
[2025-01-10] MEDS ORDERED: HYDROmorphone HCL 2 MG/ML VL/or syr IV PRN (14:30)
[2025-01-10] MEDS ORDERED: ACETAMINOPHEN 325 MG TAB PO PRN (14:30)
--- NOTE | 2025-01-10 15:27 | DVH ---
EXAM: US KIDNEY INDICATION: hydronephrosis TECHNIQUE: Multiple real-time sonographic images of the kidneys and bladder were obtained. COMPARISON: US KIDNEY on DOS: 01/12/24 Findings: Right kidney measures 13.0 cm with normal contours, echotexture, and cortical thickness. 3.5 x 3.0 x 3.1 cm anechoic lesion. Hydronephrosis. No evidence of calculi or solid lesions. Left kidney measures 10.6 cm with normal contours, echotexture, and cortical thickness. No evidence o f hydronephrosis, calculi, cystic or solid lesions. Urinary bladder is decompressed but no definite evidence of abnormal wall thickening, mass, or calcul i. Prevoid volume 20.8 mL. Postvoid volume mL. Trace right pleural effusion. Impression: 1. Unremarkable sonographic study of the left kidney. 2. Right renal cyst and moderate hydronephrosis. 3. Urinary bladder is decompressed. 4. Trace right pleural effusion.
--- NOTE | 2025-01-10 15:51 | DVHSR ---
APPROVED REPORT Exam: Nuclear Stress Test BMI: 0 Stress Test Details HR Max Heart Rate (APMHR): 154.197343 bpm Target HR (85% APMHR): 130.476874 bpm BP ECG Stress ECG Conclusion lvef 68% normal perfusion scan no ischemia NM EXAM: Myocardial Perfusion REST/STRESS Imaging Protocol: Rest Tc-99m/Stress Tc-99m 1 day Resting Data Rest SPECT myocardial perfusion imaging was performed in supine position 60 minutes following the int ravenous injection of 10.5 mCi of Tc-99m Sestamibi. Time of rest injection: 12:25 Date: 01/10/2025 Time of rest imagin:25 Date: 01/10/2025 Administration Route: IV Administration Site: Right Arm Pharmacologic Stress Pharmacologic stress test was performed by injecting Regadenoson 0.4 mg IV push followed by the intra venous injection of 30.8 mCi of Tc-99m Sestamibi. Time of stress injection: 13:47 Date: 01/10/2025 Time of stress imagin:32 Date: 01/10/2025 Administration Route: IV Administration Site: Right Arm Gated Stress SPECT was performed 45 minutes after stress injection. The images were gated to evaluate regional wall motion and calculate left ventricular ejection fracti on. Stress only was performed in the Supine position. Nuclear Conclusion Nuclear Findings: negative for ischemia lvef 68% normal perfusion scan no ischemia
[2025-01-10 17:00] VITALS: BP 148/69; PULSE 65; RESP 18; TEMP 98.2; O2SAT 100
[2025-01-10 21:00] VITALS: BP 125/68; PULSE 75; RESP 18; TEMP 98; O2SAT 94
[2025-01-10] MEDS: HYDROcodone-ACET 5/325MG TAB PO PRN (21:35)
[2025-01-10] MEDS: SODIUM CHLOR 0.9% PF (SALINE LOCK) 10ML VIAL/SYR IV SCH (21:36)
[2025-01-11] VITALS (13 sets, daily range): BP systolic 121–157; BP diastolic 60–74; PULSE 66–83; RESP 14–19; TEMP 98.3–98.7; O2SAT 94–99
[2025-01-11] MEDS: PANTOPRAZOLE 40 MG TAB PO SCH (05:32)
[2025-01-11 05:54] LABS: Hematocrit 37.3 % (36.0-46.0); Hemoglobin 12.0 g/dL (12.2-16.2); Mean Corpuscular Hemoglobin 27.3 pg (28.0-32.0); Mean Corpuscular Volume 84.7 fL (80.0-100.0); Nucleated Red Blood Cells % 0.0 %
[2025-01-11 06:01] LABS: Albumin 3.9 g/dL (3.2-4.8); Alkaline Phosphatase 53 U/L (46-116); Anion Gap 10 (5-15); BUN/Creatinine Ratio 12.0 (10.0-20.0); Blood Urea Nitrogen 10 mg/dL (9-23); Carbon Dioxide 24 mmol/L (20-31); Glucose 93 mg/dL (74-106); Sodium 141 mmol/L (136-145); Total Protein 6.9 g/dL (5.7-8.2)
[2025-01-11 06:02] LABS: Bilirubin, Total 0.5 mg/dL (0.2-1.0)
[2025-01-11 06:07] LABS: Chloride 107 mmol/L (98-107); Potassium 3.3 mmol/L (3.5-5.1)
[2025-01-11 06:08] LABS: Alanine Aminotransferase < 9 U/L (7-40); Calcium 8.7 mg/dL (8.7-10.4)
--- NOTE | 2025-01-11 06:44 | ECG ---
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
[2025-01-11] MEDS: POTASSIUM CHL 20 Meq TABLET PO ONE (08:45)
[2025-01-11] MEDS: cefTRIAXone 1GM/50ML D5W 50 ML IV SCH (09:09)
[2025-01-11] MEDS: CITALOPRAM HYDROBR 20 MG TAB PO SCH (09:57)
[2025-01-11] MEDS: LOSARTAN POTASSIUM 50 MG TAB PO SCH (09:57)
[2025-01-11] MEDS: ENOXAPARIN SOD 40 MG/0.4 ML SYRINGE SC SCH (10:00)
[2025-01-11] MEDS: CHOLECALCIFEROL (VITD3) 1,000UNIT=25mCg TAB GT SCH (10:01)
[2025-01-11] MEDS: POTASSIUM EFFERVESENT TAB 25 MEQ PO ONE (11:50)
[2025-01-11] MEDS: predniSONE 20 MG TAB PO SCH (16:22)
--- NOTE | 2025-01-11 18:47 | DVHPNRES ---
Progress Note Date Seen: Jan 11, 2025 Resident Creating Document: KHARI DUDLEY RESIDENT Medical Necessity Reason Pt with a Central, PICC or Fol: No Subjective Review of Systems Patient is a 64-year-old female with prior medical history of pulmonary sarcoidosis, COPD, asthma, recent left total knee arthroplasty, and hypertension, who presented to the ED with chief complaint of chest pain. The patient states that since Tuesday she has had right chest pain described as sharp, nonradiating, intensity 9/10, associated with shortness of breath. Patient denies fever, nausea, vomiting, abdominal pain, cough, expectoration, palpitations, and other symptoms. Due to persistence of symptoms the patient presented to the ED. on evaluation in the ED, patient was in moderate distress. A 12 lead EKG shows sinus rhythm. Initial labs show unremarkable CBC, mild hypokalemia, D-dimer 1.99, troponins were negative, and UA significant for UTI. Due to elevated D-dimer, a left lower extremity duplex ultrasound was ordered which showed no left DVT. CT angio shows no PE, diffuse bilateral pulmonary tree and bud nodularity, extensive mediastinal/ hilar calcified lymphadenopathy, pulmonary nodules up to 7 mm, and a tiny right pleural effusion. She was admitted for further workup and monitoring. Personal history: Pulmonary sarcoidosis, COPD, asthma, hypertension, DVT Surgical: Left total knee arthroplasty Allergies: Denies Social: Denies drug, tobacco, and alcohol use. States she lives with her and feels safe. Patient seen at bedside. She states that she feels well, chest pain has decreased in intensity to 6/10, shortness of breath has improved, and continues to have occasional hiccups. She denies cough, expectoration, fever, generalized body aches, rhinorrhea, throat pain, abdominal pain, palpitations, and other symptoms. vitals have been stable. Follow-up labs are unremarkable. A Cardiolite tress est was ordered to rule out ACS, this was negative for ischemia and showed EF of 68%, normal perfusion scan. Due to CT angio finding of hydronephrosis, renal ultrasound was ordered which showed unremarkable study of left kidney, right renal cysts and moderate hydronephrosis. patient was seen by pulmonology, who states that the patient could possibly be a sarcoidosis exacerbation. Per their recommendation, we have initiated the patient on 20 mg prednisone p.o. b.i.d. Additionally, the patient has been started on IV Rocephin to treat her UTI. We will continue to monitor. Review of Systems: Constitutional: Denies weight loss, fever and chills. HEENT: Denies changes in vision and hearing. Respiratory: Denies shortness of breath and cough Cardiovascular: Mild chest pain, Denies palpitations GI: Denies abdominal distention, abdominal pain, diarrhea : Denies dysuria and urinary frequency. Musculoskeletal: Refers localized left knee pain Skin: Denies rash and pruritus. Neurological: denies dizziness headache vision or hearing problems Objective vital signs Vital Sign Date Time Temp Pulse Resp B/P (MAP) Pulse Ox O2 Delivery O2 Flow Rate FiO2 01/11/25 17:20 98.4 75 16 121/65 (83) 98 98.4 01/11/25 10:59 Room Air* 0 21 Total Intake and Output 01/10/25 01/10/25 01/11/25 15:00 23:00 07:00 Intake Total 300 ml Output Total 1 ml Balance 299 ml medications Current Medications Medications Dose Ordered Sig/Sandra Route Start Time Stop Time Status Last Admin Dose Admin Citalopram Hydrobromide 20 mg DAILY PO 01/11/25 10:00 01/11/25 09:57 20 MG Losartan Potassium 50 mg DAILY PO 01/11/25 10:00 01/11/25 09:57 50 MG Pantoprazole Sodium 40 mg DAILY@0600 PO 01/11/25 06:00 Amlodipine Besylate 5 mg DAILY PO 01/11/25 10:00 01/11/25 09:57 5 MG Cholecalciferol 1,000 unit DAILY GT 01/11/25 10:00 01/11/25 10:01 1,000 UNIT Ceftriaxone Sodium 50 ml @ 100 mls/hr DAILY@09 IV 01/11/25 09:00 01/11/25 09:09 100 MLS/HR Sodium Chloride 10 ml Q8HR IV 01/10/25 22:00 01/11/25 05:48 10 ML Docusate Sodium 100 mg BIDPRN PRN PO 01/10/25 14:30 Acetaminophen 650 mg Q6HP PRN PO 01/10/25 14:30 Acetaminophen/ Hydrocodone Bitart 1 tab Q4HP PRN PO 01/10/25 14:30 01/10/25 21:35 1 TAB Hydromorphone HCl 0.5 mg Q4HP PRN IV 01/10/25 14:30 Enoxaparin Sodium 40 mg DAILY SC 01/11/25 10:00 01/11/25 10:00 40 MG Budesonide 0.5 mg BID NEB 01/11/25 22:00 Guaifenesin 200 mg Q6HP PRN PO 01/11/25 13:30 Prednisone 20 mg BID PO 01/11/25 13:45 01/11/25 16:22 20 MG Examination General: The patient is comfortable, alert and oriented in person place and time. Patient following commands HEENT: Normocephalic, atraumatic, reactive pupils, EOM intact, pink conjunctiva, pink moist mucous membrane Respiratory/pulmonary: Bilateral chest expansion, clear lungs bilaterally, vesicular murmurs present in almost all lung ackerman, no associated crackles or wheezes. Cardiovascular: Normal RRR, Normal S1 and S2 Abdomen: Abdomen nondistended, normal bowel sounds, soft, there is no pain to palpation in any of the abdominal quadrants, no palpable masses. Extremities: presence of compression sock on left leg, minor pain to palpation of left knee, limited mobility of left knee, there is no peripheral edema present at the lower extremities, pulses are palpable Skin: No rashes or pruritus, there is no sacral edema present at this time. Neurological: Intact cranial nerves with no focal neurologic deficits laboratory and microbiology Laboratory Tests 01/11/25 04:32 Test 01/11/25 04:32 Range/Units Serum Glucose 93 74-106 mg/dL Microbiology Date/Time Source Procedure Growth Status 01/10/25 12:05 Voided Urine Urine Culture - Preliminary Resulted Problem List/Assessment/Plan Problem List/Assessment/Plan Assessment and Plan Acute Chest Pain, ACS ruled out, likely due to Sarcoidosis Exacerbation - Prednisone 20 mg p.o. b.i.d. - Pulmicort 0.5 mg nebulizer b.i.d. - [place] 5 mg p.o. Q 4h PRN - acetaminophen 650 mg p.o. q.6 hours - CT angio: Diffuse bilateral pulmonary tree in bud nodularity which can be secondary to bronchiolitis, atypical infection, miliary spread carcinoma, extensive mediastinal / hilar calcified lymphadenopathy likely sequela of remote granulomatous disease. Acute cystitis with hematuria - Ceftriaxone 1 g IV daily - Urine cultures ordered PE ruled out - CT angio: No evidence of large pulmonary embolism DVT ruled out - lower extremity venous duplex ultrasound: No left lower extremity deep venous thrombosis Mild hypokalemia - Potassium 25 mEq p.o. once Hypertension - Amlodipine 5 mg p.o. daily - Losartan 50 mg p.o. daily Pulmonary nodules, likely secondary to sarcoidosis - CT angio: pulmonary nodules up to 7 mm. Right hydronephrosis - CT angio: Moderate right hydronephrosis - Renal ultrasound: Right renal cysts and moderate hydronephrosis Right renal cyst - Renal ultrasound: Right renal cysts and moderate hydronephrosis History of DVT Diet: Cardiac DVT prophylaxis: Lovenox 40 mg sc daily GI prophylaxis: Not indicated Case discussed with Dr. Villalobos Goals of care discussed with the patient for over 30 minutes. FULL CODE. Plan discussed with: Patient My Orders My Orders Orders - KHARI DUDLEY Procedure Category Date Status Time Prednisone Tablet PHA 01/11/25 In Process 13:45 Cardiac DIET 01/11/25 Transmitted Diet-2gna,Lofat,Lochol Dinner Date of Service: Jan 11, 2025 Billing Provider: MIKA VILLALOBOS MD Common Visit Codes: [id number] INP/OBS CARE(HIGH) Secondary Visit Codes: [id number] CARE PLAN 30 MINUTES KHARI DUDLEY Jan 11, 2025 18:47 MIKA VILLALOBOS MD Jan 13, 2025 20:43
[2025-01-11] MEDS ORDERED: KETOROLAC TROMETH 30 MG/ML 1ML VIAL IV PRN (20:30)
[2025-01-11] MEDS: BUDESONIDE (INHALATION) 0.5 MG/2 ML NEB NEB SCH (21:42)
--- NOTE | 2025-01-11 23:46 | DVHINCON2 ---
Date of service: Jan 11, [address] Jin Cormier Reason for Consultation Pulmonary nodules and pleural effusion. History of Present Illness A 64-year-old woman with past medical history of hypertension and kidney stones who presented to the ER on 01/10/25 with chief complaint of chest pain. Patient reported right-sided chest pain ongoing for 3 days with shortness of breath. She reported taking inhaler prior to arrival to the ED as well as blood thinners. Patient complained of "burping and hiccuping more". Denied chills, fever, N/V/D. No other associated symptoms. Initial labs showed unremarkable CBC, mild hypokalemia, D-dimer 1.99, troponins were negative, and UA significant for UTI. Due to elevated D-dimer, a left lower extremity duplex ultrasound was ordered which showed no DVT. CT angio showed no PE, diffuse bilateral pulmonary tree-in-bud nodularity, extensive mediastinal/ hilar calcified lymphadenopathy, pulmonary nodules up to 7 mm, and a tiny right pleural effusion. Patient was admitted for further care, and pulmonary consultation is requested for evaluation and management of pulmonary nodules and pleural effusion. Review of Systems: 14-point review of systems negative unless otherwise noted above. Past Medical History: Hypertension and kidney stones Past Surgical History: Nephrostomy Left knee surgery (12/07/24) Medications: Reviewed. Allergies: Benzalkonium Chloride Benzonatate Cetirizine Edetic Acid Tiotropium Family History: COPD, lung cancer, sarcoidosis, heart disease and hypertension Social History: Nonsmoker. No alcohol or illicit drug use. Family History: Cardiovascular disease G8 MOTHER Chronic obstructive pulmonary disease G8 MOTHER FH: lung cancer G8 MOTHER Hypertension G8 FATHER Sarcoidosis G8 FATHER Allergies: Coded Allergies: Benzalkonium Chloride (Verified Allergy, Unknown, 03/16/24) Benzonatate (Verified Allergy, Unknown, 03/16/24) Cetirizine (Verified Allergy, Unknown, 03/16/24) Edetic Acid (Verified Allergy, Unknown, 03/16/24) Tiotropium (Verified Allergy, Unknown, 03/16/24) Home Meds Active Scripts Docusate Sodium (Colace) 100 Mg Cap, 100 MG PO BIDP PRN for 15 Days, #40 CAP Prov:WYATT CABRERA MD 07/05/24 Cephalexin Monohydrate (Cephalexin) 500 Mg Tab, 1 TAB PO TID for 7 Days, #21 TAB Prov:WYATT CABRERA MD 07/05/24 Hydrocodone-Acetaminophen (Hydrocodone/Acetaminophen 5-325 mg) 1 Tab Tab, 1 TAB PO TIDP PRN for 6 Days, #18 TAB Prov:WYATT CABRERA MD 07/05/24 Pantoprazole Sodium Sesquihydr (Pantoprazole Sodium) 40 Mg Tab, 40 MG PO DAILY@0600 for 30 Days, #30 TAB Prov:NOHEMY ROLDAN RESIDENT 01/19/24 Reported Medications Cholecalciferol (VITAMIN D3) 1,000 Unit Chw, 1000 UNIT OR DAILY, TAB.CHEW 03/16/24 Amlodipine Besylate (Amlodipine Besylate) 10 Mg Tab, 1 TAB PO DAILY for HTN, #30 TAB 5 Refills 01/12/24 Losartan Potassium (Losartan Potassium) 50 Mg Tab, 1 TAB PO DAILY for HTN, #30 TAB 5 Refills 01/12/24 Citalopram Hydrobromide (Celexa) 20 Mg Tab, 20 MG PO DAILY for anxiety, TAB 01/12/24 Current Medications Current Medications Medications (Trade) Dose Ordered Sig/Sandra Route PRN Reason Start Time Stop Time Status Last Admin Citalopram Hydrobromide (CeleXA TABLET) 20 mg DAILY PO 01/11/25 10:00 01/11/25 09:57 Losartan Potassium (Cozaar Tablet) 50 mg DAILY PO 01/11/25 10:00 01/11/25 09:57 Pantoprazole Sodium (Protonix Tablet) 40 mg DAILY@0600 PO 01/11/25 06:00 Amlodipine Besylate (Norvasc Tablet) 5 mg DAILY PO 01/11/25 10:00 01/11/25 09:57 Cholecalciferol (Vitamin D3 Tablet) 1,000 unit DAILY GT 01/11/25 10:00 01/11/25 10:01 Ceftriaxone Sodium 50 ml @ 100 mls/hr DAILY@09 IV 01/11/25 09:00 01/11/25 09:09 Enoxaparin Sodium (Lovenox) 40 mg DAILY SC 01/11/25 10:00 01/11/25 10:00 Budesonide (Pulmicort) 0.5 mg BID NEB 01/11/25 22:00 01/11/25 21:42 Guaifenesin (Robitussin Plain Liquid) 200 mg Q6HP PRN PO FOR COUGH 01/11/25 13:30 Prednisone 20 mg BID PO 01/11/25 13:45 01/11/25 21:41 Ketorolac Tromethamine (Toradol Injection) 15 mg Q8HPRN PRN IV MODERATE PAIN (4-6 PAIN SCALE) 01/11/25 20:30 01/16/25 20:29 UNV Vital Signs Vital Signs Date Time Temp Pulse Resp B/P (MAP) Pulse Ox O2 Delivery O2 Flow Rate FiO2 01/11/25 22:06 73 18 99 01/11/25 21:00 98.3 157/64 (95) 98.3 01/11/25 20:00 Room Air* 0 21 Physical Exam Gen.: Patient lying in bed in no apparent distress. Breathing on room air. Head: Normocephalic, atraumatic. Eyes: EOMI/PERRLA. Ears: Normal hearing. Normal anatomy. Neck/trachea: Trachea midline, supple. Nose: Normal external anatomy. Mouth: Moist mucous membranes. Chest: Decreased air entry bilaterally. No wheezing or rhonchi. Cardiovascular: Positive S1, positive S2. Regular rate and rhythm. Abdomen: Positive bowel sounds in all 4 quadrants. Soft, non-tender, non-distended. : Deferred. Rectal: Deferred. Skin: Warm, dry. Intact. Extremities: 2+ radial pulses bilaterally. No lower extremity edema. Neuro: Awake, alert, oriented x3. No gross motor or sensory deficits. Cranial nerves II through XII intact. Gait not assessed. Labs/Diagnostic Data Labs Test 01/11/25 04:32 01/10/25 09:36 01/10/25 09:23 01/10/25 08:35 Range/Units White Blood Count 7.0 # 4.4-10.8 10^3/uL Red Blood Count 4.41 4.0-5.20 10^6/uL Hemoglobin 12.0 L 12.2-16.2 g/dL Hematocrit 37.3 36.0-46.0 % Mean Corpuscular Volume 84.7 80.0-100.0 fL Mean Corpuscular Hemoglobin 27.3 L 28.0-32.0 pg Mean Corpuscular Hemoglobin Concent 32.2 32.0-36.0 g/dL Red Cell Distribution Width 15.9 H 11.8-14.3 % Platelet Count 184 140-450 10^3/uL Mean Platelet Volume 11.8 H 6.9-10.8 fL Neutrophils (%) (Auto) 52.5 37.0-80.0 % Lymphocytes (%) (Auto) 28.2 10.0-50.0 % Monocytes (%) (Auto) 17.9 H 0.0-12.0 % Eosinophils (%) (Auto) 0.9 0.0-7.0 % Basophils (%) (Auto) 0.5 0.0-2.0 % Neutrophils # (Auto) 3.7 1.6-8.6 10 ^3/uL Lymphocytes # (Auto) 2.0 0.4-5.4 10 ^3/uL Monocytes # (Auto) 1.3 0-1.3 10 ^3/uL Eosinophils # (Auto) 0.1 0-0.8 10 ^3/uL Basophils # (Auto) 0 0-0.2 10 ^3/uL Nucleated Red Blood Cells 0.0 % Sodium Level 141 136-145 mmol/L Potassium Level 3.3 L 3.5-5.1 mmol/L Chloride Level 107 98-107 mmol/L Carbon Dioxide Level 24 20-31 mmol/L Anion Gap 10 5-15 Blood Urea Nitrogen 10 9-23 mg/dL Creatinine 0.83 0.550-1.02 mg/dL Glomerular Filtration Rate Calc 78 >90 mL/min BUN/Creatinine Ratio 12.0 10.0-20.0 Serum Glucose 93 74-106 mg/dL Calcium Level 8.7 8.7-10.4 mg/dL Magnesium Level 2.2 1.6-2.6 mg/dL Total Bilirubin 0.5 0.2-1.0 mg/dL Aspartate Amino Transferase (AST) 14 13-40 U/L Alanine Aminotransferase (ALT) < 9 7-40 U/L Alkaline Phosphatase 53 46-116 U/L Total Protein 6.9 5.7-8.2 g/dL Albumin 3.9 3.2-4.8 g/dL Troponin I High Sensitivity 3 L </=34 ng/L Urine Color Light-yellow Yellow Urine Clarity Cloudy H Clear Urine pH 7.0 5.0-9.0 Urine Specific [place] 1.019 1.001-1.035 Urine Protein 1+ H Negative Urine Ketones 1+ H Negative Urine Blood 2+ H Negative /uL Urine Nitrite Negative Negative Urine Bilirubin Negative Negative Urine Urobilinogen 3 H Negative mg/dL Urine Leukocyte Esterase 2+ Negative /uL Urine RBC 276 0 - 4 /hpf Urine Microscopic WBC 24 H 0-5 /HPF Urine Squamous Epithelial Cells Many <5 /hpf Urine Bacteria Mod H None Seen /hpf Urine Glucose Normal Normal mg/dL D-Dimer, Quantitative 1.99 H 0.0-0.49 mg/L FEU Microbiology Date/Time Source Procedure Growth Status 01/10/25 12:05 Voided Urine Urine Culture - Preliminary Resulted Assessment Impression: Pulmonary nodules Pleural effusion, trace, right Atelectasis Pleuritic chest pain Urinary tract infection Obesity, BMI 31.3 Plan: Supplemental oxygen PRN Titrate to keep O2 sats above 92%. CT angio showed no PE, diffuse bilateral pulmonary tree-in-bud nodularity, extensive mediastinal/ hilar calcified lymphadenopathy, pulmonary nodules up to 7 mm, and a tiny right pleural effusion. Pulmonary nodules measuring 5 mm and 4 mm in right middle lobe and 3 mm in left lower lobe. We will repeat CT chest w/o contrast in 6 months for surveillance. Patient is s/p stress test Cardiology recs appreciated. Continue antibiotics Pulmicort Prednisone PO Incentive spirometry Monitor renal function. Monitor electrolytes. Supplement as necessary. Potassium supplementation Monitor ins and outs. Diet and lifestyle modifications for weight reduction Obesity complicates all care DVT prophylaxis. Prognosis: Poor given patient's multiple co-morbidities. Rest of plan per hospitalist and other consultants. A total of 76 minutes of clinical care time was spent reviewing the patient record, examining the patient, making a diagnostic and therapeutic plan, discussing this plan with the medical personnel, following up on diagnostic studies and following the patient for clinical stability excluding any and all procedures. At least 50% of this time was spent in direct, [id number] contact. Thank you Dr. Jin Cormier, for allowing me to participate in this patient's care. Further recommendations will depend on the patient's clinical course. Please do not hesitate to contact me if you have any questions or concerns. This medical document was created using an electronic medical record system with Interface21 dictation system. Although these documentations are being carefully reviewed, there may still be some phonetic and typographical changes. The errors are purely typographical, due to imperfection on the software program, and do not reflect any compromise in the patient's medical care. Plan discussed with: Patient, Other (RN/MD) ROSE GONCALVES MD Jan 11, 2025 23:46
[2025-01-12] VITALS (10 sets, daily range): BP systolic 124–151; BP diastolic 64–87; PULSE 65–88; RESP 15–20; TEMP 36.7; O2SAT 94–99
[2025-01-12 05:48] LABS: Hematocrit 38.0 % (36.0-46.0); Hemoglobin 12.5 g/dL (12.2-16.2); Mean Corpuscular Hemoglobin 27.7 pg (28.0-32.0); Mean Corpuscular Volume 84.1 fL (80.0-100.0); Nucleated Red Blood Cells % 0.0 %
[2025-01-12 06:06] LABS: Alanine Aminotransferase 11 U/L (7-40); Albumin 4.3 g/dL (3.2-4.8); Alkaline Phosphatase 53 U/L (46-116); Anion Gap 10 (5-15); BUN/Creatinine Ratio 19.0 (10.0-20.0); Bilirubin, Total 0.4 mg/dL (0.2-1.0); Blood Urea Nitrogen 15 mg/dL (9-23); Calcium 9.0 mg/dL (8.7-10.4); Carbon Dioxide 24 mmol/L (20-31); Chloride 107 mmol/L (98-107); Potassium 3.9 mmol/L (3.5-5.1); Sodium 141 mmol/L (136-145); Total Protein 6.9 g/dL (5.7-8.2)
[2025-01-12 06:07] LABS: Glucose 130 mg/dL (74-106)
[2025-01-12] MEDS: CHOLECALCIFEROL (VITD3) 1,000UNIT=25mCg TAB PO SCH (09:14)
[2025-01-12] MEDS ORDERED: CEPH500C PO (12:13)
[2025-01-12] MEDS ORDERED: BUDE0.5S IN (13:31)
[2025-01-12] MEDS ORDERED: PRED20TA2 PO (13:31)
--- NOTE | 2025-01-12 16:25 | DVHDSRES ---
Discharge Summary Date of Admission Resident Creating Document: KHARI DUDLEY RESIDENT Jan 10, 2025 at 14:22 Date of Discharge: Jan 12, 2025 Admitting Diagnosis Acute Chest Pain Labs/Diagnostic Data: Laboratory Results Test 01/12/25 04:56 01/11/25 04:32 01/10/25 09:36 01/10/25 09:23 White Blood Count 5.1 10^3/uL (4.4-10.8) Red Blood Count 4.52 10^6/uL (4.0-5.20) Hemoglobin 12.5 g/dL (12.2-16.2) Hematocrit 38.0 % (36.0-46.0) Mean Corpuscular Volume 84.1 fL (80.0-100.0) Mean Corpuscular Hemoglobin 27.7 pg (28.0-32.0) Mean Corpuscular Hemoglobin Concent 32.9 g/dL (32.0-36.0) Red Cell Distribution Width 15.5 % (11.8-14.3) Platelet Count 184 10^3/uL (140-450) Mean Platelet Volume 11.2 fL (6.9-10.8) Neutrophils (%) (Auto) 79.4 % (37.0-80.0) Lymphocytes (%) (Auto) 16.1 % (10.0-50.0) Monocytes (%) (Auto) 4.3 % (0.0-12.0) Eosinophils (%) (Auto) 0.0 % (0.0-7.0) Basophils (%) (Auto) 0.2 % (0.0-2.0) Neutrophils # (Auto) 4.1 10 ^3/uL (1.6-8.6) Lymphocytes # (Auto) 0.8 10 ^3/uL (0.4-5.4) Monocytes # (Auto) 0.2 10 ^3/uL (0-1.3) Eosinophils # (Auto) 0 10 ^3/uL (0-0.8) Basophils # (Auto) 0 10 ^3/uL (0-0.2) Nucleated Red Blood Cells 0.0 % Sodium Level 141 mmol/L (136-145) Potassium Level 3.9 mmol/L (3.5-5.1) Chloride Level 107 mmol/L (98-107) Carbon Dioxide Level 24 mmol/L (20-31) Anion Gap 10 (5-15) Blood Urea Nitrogen 15 mg/dL (9-23) Creatinine 0.79 mg/dL (0.550-1.02) Glomerular Filtration Rate Calc 82 mL/min (>90) BUN/Creatinine Ratio 19.0 (10.0-20.0) Serum Glucose 130 mg/dL (74-106) Calcium Level 9.0 mg/dL (8.7-10.4) Total Bilirubin 0.4 mg/dL (0.2-1.0) Aspartate Amino Transferase (AST) 14 U/L (13-40) Alanine Aminotransferase (ALT) 11 U/L (7-40) Alkaline Phosphatase 53 U/L (46-116) Total Protein 6.9 g/dL (5.7-8.2) Albumin 4.3 g/dL (3.2-4.8) Magnesium Level 2.2 mg/dL (1.6-2.6) Troponin I High Sensitivity 3 ng/L (</=34) Urine Color Light-yellow (Yellow) Urine Clarity Cloudy (Clear) Urine pH 7.0 (5.0-9.0) Urine Specific [place] 1.019 (1.001-1.035) Urine Protein 1+ (Negative) Urine Ketones 1+ (Negative) Urine Blood 2+ /uL (Negative) Urine Nitrite Negative (Negative) Urine Bilirubin Negative (Negative) Urine Urobilinogen 3 mg/dL (Negative) Urine Leukocyte Esterase 2+ /uL (Negative) Urine RBC 276 /hpf (0 - 4) Urine Microscopic WBC 24 /HPF (0-5) Urine Squamous Epithelial Cells Many /hpf (<5) Urine Bacteria Mod /hpf (None Seen) Urine Glucose Normal mg/dL (Normal) Test 01/10/25 08:35 D-Dimer, Quantitative 1.99 mg/L FEU (0.0-0.49) Other Laboratory Tests 01/12/25 04:56 Brief Hx & Hospital Course: Patient is a 64-year-old female with prior medical history of pulmonary sarcoidosis, COPD, asthma, recent left total knee arthroplasty, and hypertension, who presented to the ED with chief complaint of chest pain. The patient states that since Tuesday she has had right chest pain described as sharp, nonradiating, intensity 9/10, associated with shortness of breath. Patient denies fever, nausea, vomiting, abdominal pain, cough, expectoration, palpitations, and other symptoms. Due to persistence of symptoms the patient presented to the ED. on evaluation in the ED, patient was in moderate distress. A 12 lead EKG shows sinus rhythm. Initial labs show unremarkable CBC, mild hypokalemia, D-dimer 1.99, troponins were negative, and UA significant for UTI. Due to elevated D-dimer, a left lower extremity duplex ultrasound was ordered which showed no left DVT. CT angio shows no PE, diffuse bilateral pulmonary tree and bud nodularity, extensive mediastinal/ hilar calcified lymphadenopathy, pulmonary nodules up to 7 mm, and a tiny right pleural effusion. She was admitted for further workup and monitoring. On evaluation after admission, the patient stated that she felt well, the chest pain shortness of breath had improved. The Cardiolite stress test was ordered to rule out ACS, this was negative for ischemia and showed an EF of 68%, normal perfusion scan. Ultrasound was ordered due to findings of CT angio, this showed unremarkable study of left kidney, right renal cyst and moderate hydronephrosis. Patient was seen by pulmonology for evaluation management of pulmonary nodules and pleural effusion. They recommended she admission of p.o. prednisone in and Pulmicort for recurrence showed. Additionally recommend repeat CT chest without contrast in 6 months for surveillance of nodules. Per pulmonology's recommendations, the patient was started on PO prednisone and breathing treatments with Pulmicort. Additionally, she was started on IV antibiotics for the UTI. The patient has progressed favorably. On evaluation today, the patient states she feels well, chest pain and shortness of breath have resolved, she has been able to ambulate around the unit with use of her walker without difficulty, she has slept well, and is tolerating oral diet. No adverse events overnight. Vitals have been stable. Follow-up labs are within normal range. She is considered stable for discharge home with p.o. prednisone for 5 days, Pulmicort, and Keflex for completion of antibiotic treatment. we have discussed lifestyle modifications for optimization of comorbidities. 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 All medications and recommendations have been thoroughly explained to the patient. All questions have been answered. She states she understands and agrees. Personal history: Pulmonary sarcoidosis, COPD, asthma, hypertension, DVT Surgical: Left total knee arthroplasty Allergies: Denies Social: Denies drug, tobacco, and alcohol use. States she lives with her and feels safe. Physical Exam: General: The patient is comfortable, alert and oriented in person place and time. Patient following commands HEENT: Normocephalic, atraumatic, reactive pupils, EOM intact, pink conjunctiva, pink moist mucous membrane Respiratory/pulmonary: Bilateral chest expansion, clear lungs bilaterally, vesicular murmurs present in almost all lung ackerman, no associated crackles or wheezes. Cardiovascular: Normal RRR, Normal S1 and S2 Abdomen: Abdomen nondistended, normal bowel sounds, soft, there is no pain to palpation in any of the abdominal quadrants, no palpable masses. Extremities: presence of compression sock on left leg, minor pain to palpation of left knee, limited mobility of left knee, there is no peripheral edema present at the lower extremities, pulses are palpable Skin: No rashes or pruritus, there is no sacral edema present at this time. Neurological: Intact cranial nerves with no focal neurologic deficits Discussed with Dr. Villalobos Goals of care discussed with the patient for over 25 minutes Consults/Reason for consult Pulmonology was consulted due to presence of pulmonary nodules and pleural effusion Operations or Procedures US LT Lower DVT HISTORY: dvt COMPARISON: US BILAT LOWER DVT on DOS: 01/12/24 TECHNIQUE: Duplex doppler evaluation of the deep venous system of the lower extremity from the common femoral veins, superficial femoral vein, great saphenous vein, deep femoral vein, popliteal vein, and calf veins, including color doppler and spectral/pulsed waveform analysis, was performed. FINDINGS: Left: - Common femoral vein: Compressible - Deep femoral vein: Compressible - Femoral vein: Compressible - Popliteal vein: Compressible - Posterior tibial vein: Waveforms present - Other: Nothing IMPRESSION: No left lower extremity deep venous thrombosis. Exam: Nuclear Stress Test BMI: 0 Stress Test Details HR Max Heart Rate (APMHR): 154.078289 bpm Target HR (85% APMHR): 130.451692 bpm BP ECG Stress ECG Conclusion lvef 68% normal perfusion scan no ischemia NM EXAM: Myocardial Perfusion REST/STRESS Imaging Protocol: Rest Tc-99m/Stress Tc-99m 1 day Resting Data Rest SPECT myocardial perfusion imaging was performed in supine position 60 minutes following the intravenous injection of 10.5 mCi of Tc-99m Sestamibi. Time of rest injection: 12:25 Date: 01/10/2025 Time of rest imagin:25 Date: 01/10/2025 Administration Route: IV Administration Site: Right Arm Pharmacologic Stress Pharmacologic stress test was performed by injecting Regadenoson 0.4 mg IV push followed by the intravenous injection of 30.8 mCi of Tc-99m Sestamibi. Time of stress injection: 13:47 Date: 01/10/2025 Time of stress imagin:32 Date: 01/10/2025 Administration Route: IV Administration Site: Right Arm Gated Stress SPECT was performed 45 minutes after stress injection. The images were gated to evaluate regional wall motion and calculate left ventricular ejection fraction. Stress only was performed in the Supine position. Nuclear Conclusion Nuclear Findings: negative for ischemia lvef 68% normal perfusion scan no ischemia Indication: right sided chest pain, prior PE, rule active PE Technique: CT axial images of the abdomen and pelvis are obtained with intravenous contrast. Coronal and sagittal reformats were obtained. Radiation Dose Information: CTDI volume is 5.92 mGy. Dose-length product is 2.54 mGy*cm Comparison: CT CT ANGIO CHEST CONTRAST on DOS: 01/11/24 FINDINGS: No filling defect within the main left and right pulmonary arteries. Segmental and subsegmental branches suboptimally opacified/ characterize. The trachea is patent. No pneumothorax. Bilateral pulmonary tree-in-bud nodularity. 5 mm Right lower lobe solid nodule. 7 mm right upper lobe pulmonary nodule. 4 mm right middle lobe pulmonary nodule. 3 mm left lower lobe pulmonary nodule.. Bilateral atelectasis. Tiny right pleural effusion Heart normal in size. Coronary artery calcification disease. Calcified mediastinal/hilar lymph nodes. No supraclavicular or axillary lymphadenopathy. There is moderate right hydronephrosis, incompletely characterized. Small hiatal hernia. Cholecystectomy. No aggressive osseous process. IMPRESSION: No evidence for large pulmonary embolism. Diffuse bilateral pulmonary tree-in-bud nodularity which can be secondary to bronchiolitis, atypical infection, miliary spread carcinoma. Extensive mediastinal/hilar calcified lymphadenopathy likely sequela of remote granulomatous disease. Moderate right hydronephrosis, incompletely characterized. Recommend CT abdomen pelvis to evaluate. Small hiatal hernia. Pulmonary nodules up to 7 mm.. Recommend follow-up per Fleischner society criteria. Tiny right pleural effusion. Other findings as described. EXAM: US KIDNEY INDICATION: hydronephrosis TECHNIQUE: Multiple real-time sonographic images of the kidneys and bladder were obtained. COMPARISON: US KIDNEY on DOS: 01/12/24 Findings: Right kidney measures 13.0 cm with normal contours, echotexture, and cortical thickness. 3.5 x 3.0 x 3.1 cm anechoic lesion. Hydronephrosis. No evidence of calculi or solid lesions. Left kidney measures 10.6 cm with normal contours, echotexture, and cortical thickness. No evidence of hydronephrosis, calculi, cystic or solid lesions. Urinary bladder is decompressed but no definite evidence of abnormal wall thickening, mass, or calculi. Prevoid volume 20.8 mL. Postvoid volume mL. Trace right pleural effusion. Impression: 1. Unremarkable sonographic study of the left kidney. 2. Right renal cyst and moderate hydronephrosis. 3. Urinary bladder is decompressed. 4. Trace right pleural effusion. Condition at Discharge: Stable Final Diagnosis/Problems List Acute Chest Pain, ACS ruled out, likely due to Sarcoidosis Exacerbation Acute cystitis with hematuria PE ruled out DVT ruled out Mild hypokalemia, resolved Hypertension Pulmonary nodules Right hydronephrosis Right renal cyst Trace right pleural effusion Obesity, BMI: 31.3 kg/m2 History of DVT Discharge Disposition: Home Discharge Instruct/Medications Diet: Regular Activity: No Restrictions, As Tolerated Follow Up/Referral: Follow-up with Dr. Britton in outpatient clinic in 2-3 weeks Follow-up with your PCP in 1-2 weeks Medications: Prednisone 20 mg p.o. b.i.d. for 5 days Keflex 500 mg p.o. t.i.d. Pulmicort 0.5 mg inhalation p.r.n. Continue home medications Scheduled Amlodipine Besylate (Amlodipine Besylate), 1 TAB PO DAILY, (Reported) Cephalexin Monohydrate (Cephalexin), 1 CAP PO TID Cholecalciferol (Vitamin D3), 1,000 UNIT OR DAILY, (Reported) Citalopram Hydrobromide (Celexa), 20 MG PO DAILY, (Reported) Losartan Potassium (Losartan Potassium), 1 TAB PO DAILY, (Reported) Pantoprazole Sodium Sesquihydr (Pantoprazole Sodium), 40 MG PO DAILY@0600 Prednisone (Prednisone), 20 MG PO BID Scheduled PRN Budesonide (Inhalation) (Budesonide), 0.5 MG IN PRN PRN Docusate Sodium (Colace), 100 MG PO BIDP PRN Hydrocodone-Acetaminophen (Hydrocodone/Acetaminophen 5-325 mg), 1 TAB PO TIDP PRN Discontinued Medications Cephalexin Monohydrate (Cephalexin), 1 TAB PO TID Discharge Statement: "Patient was advised to return to the ER or call 911 if any headaches, dizziness, shortness of breath, chest pain, abdominal pain, bleeding, fevers, or worsening of medical condition. Patient was counseled about treatment plan, medications, possible side effects, patientverbalized understanding. All questions were answered to the best of my ability. This discharge took greater then 30 minutes in planning, reviewing documentation, counseling the patient, and discussing with other team members." ASSESSMENT ASSESSMENT Assessment Sarcoidosis exacerbation Date of Service: Jan 12, 2025 Billing Provider: MIKA VILLALOBOS MD Common Visit Codes: 03695-MAV/OBS DISCH DAY >30min KHARI DUDLEY RESIDENT Jan 12, 2025 16:25 MIKA VILLALOBOS MD Jan 13, 2025 20:44
--- NOTE | 2025-01-12 23:52 | DVHPN2 ---
Progress Note - Dictate Date Seen: Jan 12, 2025 Medical Necessity Reason Pt with a Central, PICC or Fol: No Subjective Patient seen and examined at bedside. Breathing comfortably on room air. Overnight events reviewed. vital signs Vital Sign Date Time Temp Pulse Resp B/P (MAP) Pulse Ox O2 Delivery O2 Flow Rate FiO2 01/12/25 13:13 36.7 71 18 95 01/12/25 12:24 145/66 (92) 01/12/25 10:00 Room Air* 0 21 Total Intake and Output 01/11/25 01/11/25 01/12/25 15:00 23:00 07:00 Intake Total 50 ml 240 ml 1640 ml Output Total 800 ml 1000 ml Balance 50 ml -560 ml 640 ml medications Current Medications Medications Dose Ordered Sig/Sandra Route Start Time Stop Time Status Last Admin Dose Admin Ketorolac Tromethamine 15 mg Q8HPRN PRN IV 01/11/25 20:30 01/16/25 20:29 UNV objective Gen.: Patient lying in bed in no apparent distress. Breathing on room air. Head: Normocephalic, atraumatic. Eyes: EOMI/PERRLA. Ears: Normal hearing. Normal anatomy. Neck/trachea: Trachea midline, supple. Nose: Normal external anatomy. Mouth: Moist mucous membranes. Chest: Decreased air entry bilaterally. No wheezing or rhonchi. Cardiovascular: Positive S1, positive S2. Regular rate and rhythm. Abdomen: Positive bowel sounds in all 4 quadrants. Soft, non-tender, non- distended. : Deferred. Rectal: Deferred. Skin: Warm, dry. Intact. Extremities: 2+ radial pulses bilaterally. No lower extremity edema. Neuro: Awake, alert, oriented x3. No gross motor or sensory deficits. Cranial nerves II through XII intact. Gait not assessed. laboratory and microbiology Laboratory Tests 01/12/25 04:56 Test 01/12/25 04:56 Range/Units Serum Glucose 130 H 74-106 mg/dL Assessment/Plan Impression: Pulmonary nodules Pleural effusion, trace, right Atelectasis Pleuritic chest pain Urinary tract infection Obesity, BMI 31.3 Events: Remains on room air Supplemental oxygen PRN Improved pain with steroid course. Likely sarcoid flare - recommend outpatient evaluation by Rheum for DMARDs. Continue Pulmicort Antitussive PRN Incentive spirometry Follow up in Pulmonary office in 2-3 weeks. Labs and imaging reviewed. Rest of plan as noted below. Plan: Supplemental oxygen PRN Titrate to keep O2 sats above 92%. CT angio showed no PE, diffuse bilateral pulmonary tree-in-bud nodularity, extensive mediastinal/ hilar calcified lymphadenopathy, pulmonary nodules up to 7 mm, and a tiny right pleural effusion. Pulmonary nodules measuring 5 mm and 4 mm in right middle lobe and 3 mm in left lower lobe. We will repeat CT chest w/o contrast in 6 months for surveillance. Patient is s/p stress test Cardiology recs appreciated. Continue antibiotics Pulmicort Prednisone PO Incentive spirometry Monitor renal function. Monitor electrolytes. Supplement as necessary. Monitor ins and outs. Diet and lifestyle modifications for weight reduction Obesity complicates all care DVT prophylaxis. Prognosis: Poor given patient's multiple co-morbidities. Rest of plan per hospitalist and other consultants. A total of 51 minutes of clinical care time was spent reviewing the patient record, examining the patient, making a diagnostic and therapeutic plan, discussing this plan with the medical personnel, following up on diagnostic studies and following the patient for clinical stability excluding any and all procedures. At least 50% of this time was spent in direct, [id number] contact. Thank you Dr. Jin Cormier, for allowing me to participate in this patient's care. Further recommendations will depend on the patient's clinical course. Please do not hesitate to contact me if you have any questions or concerns. This medical document was created using an electronic medical record system with [employer] dictation system. Although these documentations are being carefully reviewed, there may still be some phonetic and typographical changes. The errors are purely typographical, due to imperfection on the software program, and do not reflect any compromise in the patient's medical care. Plan discussed with: Patient, Other (NATA Mak) ROSE GONCALVES MD Jan 12, 2025 23:52
--- NOTE | 2025-01-14 14:25 | ECG ---
[facility] Test Date: 2025-01-10 Test Time: 16:21:52 Pat Name: JADIEL LOJA Department: Room: [facility] B Gender: F [employer]: : 1960 Requested By: PRAVEEN BANDA Order Number: [id number] Reading MD: Measurements Intervals [place] Rate: 64 P: 71 ME: 144 QRS: 19 QRSD: 84 T: 2 QT: 414 QTc: 427 Interpretive Statements Normal sinus rhythm Nonspecific T wave abnormality Please click the below link to view image of tracing.
== END 2025-01-12 14:15 | disposition home or self-care (01) | DRG 197 ==
LOC: ER 08:09 → OVERFLOW 14:22 → TELE-WESTW 01-11 17:12
PROVIDERS: ADMIT Internal Medicine Geriatric Medicine; ATTEND Emergency Medicine
DX: D86.89 Sarcoidosis of other sites (principal); J90 Pleural effusion, not elsewhere classified; N13.6 Pyonephrosis; J98.11 Atelectasis; N30.01 Acute cystitis with hematuria; Z68.31 Body mass index [BMI] 31.0-31.9, adult; I10 Essential (primary) hypertension; J44.89 Other specified chronic obstructive pulmonary disease; E66.9 Obesity, unspecified; I25.10 Atherosclerotic heart disease of native coronary artery without angina pectoris; N28.1 Cyst of kidney, acquired; E87.6 Hypokalemia; Z96.652 Presence of left artificial knee joint; Z87.442 Personal history of urinary calculi; Z82.5 Family history of asthma and other chronic lower respiratory diseases; Z82.49 Family history of ischemic heart disease and other diseases of the circulatory system; Z80.1 Family history of malignant neoplasm of trachea, bronchus and lung; Z93.6 Other artificial openings of urinary tract status; Z86.718 Personal history of other venous thrombosis and embolism; Z88.8 Allergy status to other drugs, medicaments and biological substances
CPT/HCPCS: 36415; 71275; 76775; 78452; 80048; 80053; 81001; 83735; 84484; 85025; 85379; 87086; 93005; 93017; 93971; 94640; 96365; 99291; G0378